=== PATIENT | male | born 1935 | race Caucasian/White ===

== ENCOUNTER 2024-08-10 22:47 | Inpatient (IN) | payer MEDICARE, OTHER, SELFPAY ==
--- OUTSIDE RECORDS SUMMARY | 2024-08-10 23:01 | XMS_ITS | Continuity of Care Document ---
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 Name Role Phone JAMISON ROSE II Primary Care Physician Encounter [facility] [id number] Date(s): 07/23/24 - 07/25/24 [facility] [address] [place] [phone] Encounter Diagnosis Stage 1 acute kidney injury(Discharge Diagnosis) - 07/23/24 Generalized weakness(Discharge Diagnosis) - 07/23/24 Discharge Disposition: D/C - Home Attending Physician: BEAR MORAN MD Admitting Physician: BEAR MORAN MD Allergies, Adverse Reactions, Alerts No Known Medication Allergies Assessment and Plan Extracted from: Title:Admission H & P Author:TISH TOMLIN MD Date:07/24/24 Weakness/deconditioning -Multifactorial:??Dehydration,??CYNDEE, anemia,??hyponatremia, malnutrition -Patient received a total of 1.5 L IV fluid, due to underlying heart failure we will proceed gently??with??NS 50 cc/h and reassess for??fluid overload -TSH ordered -Nutritional optimization -PT eval ?? CYNDEE -Creatinine 2.0, baseline 1.2 -Likely secondary to dehydration -IV fluids as above -Avoid nephrotoxic medications, trend BUN/creatinine ?? Hypoosmolar hyponatremia -Sodium 133 -Patient on NS, -BMP daily ?? Anemia -Hb 10.7,??JACINDA vs ACD -Iron panel/ferritin ordered ?? Bradycardia -EKG showing sinus bradycardia with??first-degree AV block -Will hold beta-blockers for now -Continue telemetry ? Other medical problems HFrEF, not in decompensation:??Last TTE done 02/2024??showed EF 35 to 40%??hold all diuretics for now due to??concerns of dehydration,??resume GDMT, will hold metoprolol Paroxysmal A-fib:??Resume Eliquis,??resume rest of her meds when med rec done, will hold metoprolol Dyslipidemia:??Resume statin when med rec done Essential hypertension:??Patient blood pressure??115/59,??controlled.?? Resume home medications when med rec done COPD, not in exacerbation: DuoNeb as needed ?? General Measures CODE STATUS: Full VTE prophylaxis: Patient on Eliquis GI prophylaxis: None needed FEN:??Regular diet Disposition: Medical floor telemetry ? Addendum by BEAR MORAN MD on July 24, 2024 09:13:46 EXECUTIVE ADMIN I was personally present throughout this encounter.?? I personally interviewed the patient regarding history and review of systems.?? I personally performed a physical exam on the patient.?? I contributed to the medical decision making of the encounter by reviewing/formulating the assessment and the plan for treatment and expected outcome.?? I have reviewed and agree with the Resident documentation and recommend no changes. Future Appointments Appointment Date:07/28/2024 11:45:00 AM Scheduled Provider: Location:[facility] Appointment Type:Surgery Appointment Date:08/15/2024 09:00:00 AM Scheduled Provider: Location:[facility] CT Appointment Type:CT Chest Diagnostic WO Diagnostic Tests Pending * Ferritin CQ 07/24/24 Future Scheduled Tests Radiology* CT Chest Diagnostic WO 08/15/24 Functional Status 07/24/24 ADLs Minimal assistance Medications ALPRAZolam 1 mg oral tablet = 1 tab(s), Oral, Daily at Bedtime, 0 Refill(s) Start Date: 02/25/24 Status: Ordered amiodarone 200 mg oral tablet = 1 tab(s), Oral, BID, 0 Refill(s) Start Date: 05/21/24 Status: Ordered apixaban 2.5 mg oral tablet = 1 tab(s), Oral, BID, # 60 tab(s), 2 Refill(s), Pharmacy: [facility], 165, cm, 07/24/24 0:40:00 EXECUTIVE ADMIN, Patient Height, 47, kg, 07/25/24 6:31:00 EXECUTIVE ADMIN, Patient Weight (kg) Start Date: 07/25/24 Stop Date: 10/23/24 Status: Ordered Entresto 24 mg-26 mg oral tablet 1 tab(s), Oral, BID, 0 Refill(s) Start Date: 07/21/24 Status: Ordered ferrous sulfate 325 mg (65 mg elemental iron) oral delayed release tablet = 1 tab(s), Oral, Q MWF, # 90 tab(s), 0 Refill(s) Start Date: 05/21/24 Status: Ordered Flonase 50 mcg/inh nasal spray 1 spray(s), Nasal, Daily Start Date: 07/24/24 Status: Ordered magnesium oxide 400 mg oral tablet = 1 tab(s), Oral, Daily, X 30 day(s), # 30 tab(s), 0 Refill(s), Pharmacy: [facility], 165, cm, 07/24/24 0:40:00 EXECUTIVE ADMIN, Patient Height, 47, kg, 07/25/24 6:31:00 EXECUTIVE ADMIN, Patient Weight (kg) Start Date: 07/25/24 Stop Date: 08/24/24 Status: Ordered metoprolol succinate 25 mg oral capsule, extended release = 1 cap(s), Oral, Daily, # 30 cap(s), 2 Refill(s), Pharmacy: [facility], 165, cm, 07/24/24 0:40:00 EXECUTIVE ADMIN, Patient Height, 47, kg, 07/25/24 6:31:00 EXECUTIVE ADMIN, Patient Weight (kg) Start Date: 07/25/24 Stop Date: 10/23/24 Status: Ordered montelukast 10 mg oral tablet = 1 tab(s), Oral, QPM, # 30 tab(s), 0 Refill(s) Start Date: 02/25/24 Status: Ordered pantoprazole 40 mg oral delayed release tablet = 1 tab(s), Oral, Daily, # 30 tab(s), 0 Refill(s) Start Date: 07/21/24 Status: Ordered Ventolin HFA 90 mcg/inh inhalation aerosol = 2 puff(s), Inhale, [id number], PRN for wheezing, # 8 gm, 0 Refill(s) Start Date: 02/25/24 Status: Ordered Mental Status 07/25/24 Orientation Assessment Identifies self 07/24/24 Affect/Behavior Appropriate, Calm, Cooperative, Motivated 07/24/24 Hallucinations Present None 07/23/24 Level of Consciousness NIH Stroke Scale Alert, keenly responsive Problem List Condition Confirmation Course Effective Dates Status Health St atus Informant At risk for fluid volume imbalance 1 Confirmed Active Fluid volume excess 2 Confirmed Active 1Problem added automatically by system based on initiation of appropriate Plan of Care 2Problem added automatically by system based on initiation of Heart Failure Plan of Care. Procedures Procedure Date Related Diagnosis Body Site Status Epidural Steroid Injection (Back) 1 04/01/24 Completed 1auto-populated from documented surgical case Results Laboratory List Name Date .Differential Automated 07/25/24 Basic Metabolic Profile w/Total Calcium 07/25/24 Complete Blood Count w/Diff Auto 4 Magnesium Serum 07/25/24 Comprehensive Metabolic Profile (CMP) .Differential Automated 07/24/24 BNP 07/24/24 Complete Blood Count w/Diff Auto (CBC w/ Diff Auto) 07/24/24 Iron Binding Capacity Panel DM 07/24/24 TSH 07/24/24 Urinalysis w/Reflex Micro/Reflex Culture 07/23/24 .Differential Automated 07/23/24 C Reactive Protein (CRP) 07/23/24 COVID-19 Influenza A and B INOCENCIO MARCO A 07/06 Complete Blood Count w/Diff Auto (CBC w/ Diff Auto) 07/23/24 Comprehensive Metabolic Profile (CMP) Magnesium Serum 07/23/24 Most recent to oldest [Reference Range]: 1 2 3 Dipstick Type? Auto (07/23/24 9:47 PM) Reflex Urine Culture? No (07/23/24 9:47 PM) Reflex Microscopic Type? Not Reqd (07/23/24 9:47 PM) eGFR [>=90 mL/min/1.73m??] 53 mL/min/1.7 3m?? 1 *LOW* (07/25/24 5:08 AM) 45 mL/min/1.73m?? 2 *LOW* (07/24/24 10:54 AM) 32 mL/min/1.73m?? 3 *LOW* (07/23/24 8:10 PM) nRBC% Auto 0 % *NA* (07/25/24 5:08 AM) 0 % *NA* (07/24/24 3:44 AM) 0 % *NA* (07/23/24 8:10 PM) nRBC# Auto 0 /100 WBC *NA* (07/25/24 5:08 AM) 0 /100 WBC *NA* (07/24/24 3:44 AM) 0 /100 WBC *NA* (07/23/24 8:10 PM) RBC [4.45-5.99] 4.21 *LOW* (07/25/24 5:08 AM) 3.72 *LOW* (07/24/24 3:44 AM) 4.00 *LOW* (07/23/24 8:10 PM) BUN [8-17 mg/dL] 14 mg/dL (07/25/24 5:08 AM) 19 mg/dL *HI* (07/24/24 10:54 AM) 29 mg/dL *HI* (07/23/24 8:10 PM) Albumin [3.6-4.9 g/dL] 2.3 g/dL *LOW* (07/24/24 10:54 AM) 2.3 g/dL *LOW* (07/23/24 8:10 PM) Alkaline Phosphatase [51-135 U/L] 77 U/L (07/24/24 10:54 AM) 77 U/L (07/23/24 8:10 PM) ALT [31-64 U/L] 111 U/L *HI* (07/24/24 10:54 AM) 109 U/L *HI* (07/23/24 8:10 PM) Anion Gap [3.1-10.9 mmol/L] 5.0 mmol/L (07/25/24 5:08 AM) 5.0 mmol/L (07/24/24 10:54 AM) 6.0 mmol/L (07/23/24 8:10 PM) AST [16-36 U/L] 80 U/L *HI* (07/24/24 10:54 AM) 79 U/L *HI* (07/23/24 8:10 PM) Basophils# Auto [1.0-1.0] 0.0 *LOW* (07/25/24 5:08 AM) 0.1 *LOW* (07/24/24 3:44 AM) 0.1 *LOW* (07/23/24 8:10 PM) Basophils% Auto [1.0-4.0 %] 0.6 % *LOW* (07/25/24 5:08 AM) 0.7 % *LOW* (07/24/24 3:44 AM) 0.7 % *LOW* (07/23/24 8:10 PM) Bili Total [0.1-0.9 mg/dL] 0.4 mg/dL (07/24/24 10:54 AM) 0.4 mg/dL (07/23/24 8:10 PM) BUN/Crea Ratio [6.01-19.99] 10.77 (07/25/24 5:08 AM) 12.67 (07/24/24 10:54 AM) 14.50 (07/23/24 8:10 PM) Calcium [8.6-10.0 mg/dL] 8.7 mg/dL (07/25/24 5:08 AM) 9.0 mg/dL (07/24/24 10:54 AM) 9.1 mg/dL (07/23/24 8:10 PM) Creatinine [0.6-1.3 mg/dL] 1.3 mg/dL (07/25/24 5:08 AM) 1.5 mg/dL *HI* (07/24/24 10:54 AM) 2.0 mg/dL *HI* (07/23/24 8:10 PM) Eos# Auto [2.0-2.0] 0.2 *LOW* (07/25/24 5:08 AM) 0.3 *LOW* (07/24/24 3:44 AM) 0.2 *LOW* (07/23/24 8:10 PM) Eosinophils% Auto [1.0-2.0 %] 2.8 % *HI* (07/25/24 5:08 AM) 4.9 % *HI* (07/24/24 3:44 AM) 2.9 % *HI* (07/23/24 8:10 PM) Globulin 5 *NA* (07/24/24 10:54 AM) 5 *NA* (07/23/24 8:10 PM) HCT [40.1-53.9 %] 37.1 % *LOW* (07/25/24 5:08 AM) 30.9 % *LOW* (07/24/24 3:44 AM) 33.3 % *LOW* (07/23/24 8:10 PM) Hgb [13.4-17.6 g/dL] 11.3 g/dL *LOW* (07/25/24 5:08 AM) 10.1 g/dL *LOW* (07/24/24 3:44 AM) 10.9 g/dL *LOW* (07/23/24 8:10 PM) Potassium [3.6-5.2 mEq/L] 4.6 mEq/L (07/25/24 5:08 AM) 4.9 mEq/L (07/24/24 10:54 AM) 4.9 mEq/L (07/23/24 8:10 PM) Lymphocytes# Auto [2.0-4.0] 0.9 *LOW* (07/25/24 5:08 AM) 1.0 *LOW* (07/24/24 3:44 AM) 0.9 *LOW* (07/23/24 8:10 PM) Lymphocytes% Auto [22.0-50.0 %] 12.8 % *LOW* (07/25/24 5:08 AM) 13.7 % *LOW* (07/24/24 3:44 AM) 12.6 % *LOW* (07/23/24 8:10 PM) MCH [27.1-32.9 pg] 26.8 pg *LOW* (07/25/24 5:08 AM) 27.1 pg (07/24/24 3:44 AM) 27.2 pg (07/23/24 8:10 PM) MCHC [32.1-35.9] 30.4 *LOW* (07/25/24 5:08 AM) 32.7 (07/24/24 3:44 AM) 32.7 (07/23/24 8:10 PM) MCV [80.1-96.9 fL] 88.0 fL (07/25/24 5:08 AM) 82.9 fL (07/24/24 3:44 AM) 83.2 fL (07/23/24 8:10 PM) Monocytes# Auto [1.0-1.0] 0.9 *LOW* (07/25/24 5:08 AM) 0.9 *LOW* (07/24/24 3:44 AM) 1.0 (07/23/24 8:10 PM) Monocytes% Auto [3.0-8.0 %] 12.8 % *HI* (07/25/24 5:08 AM) 12.7 % *HI* (07/24/24 3:44 AM) 12.9 % *HI* (07/23/24 8:10 PM) Neutrophils# Auto [3.0-7.0] 4.9 (07/25/24 5:08 AM) 4.8 (07/24/24 3:44 AM) 5.2 (07/23/24 8:10 PM) Neutrophils% Auto [38.0-69.0 %] 71.0 % *HI* (07/25/24 5:08 AM) 68.0 % (07/24/24 3:44 AM) 70.9 % *HI* (07/23/24 8:10 PM) Plt Cnt [151-449 x10^3/mcL] 307 x10^3/mc L (07/25/24 5:08 AM) 337 x10^3/mcL (07/24/24 3:44 AM) 349 x10^3/mcL (07/23/24 8:10 PM) Prot Total [6.5-8.2 g/dL] 7.4 g/dL (07/24/24 10:54 AM) 7.3 g/dL (07/23/24 8:10 PM) RDW [11.6-14.4 %] 17.6 % *HI* (07/25/24 5:08 AM) 16.9 % *HI* (07/24/24 3:44 AM) 16.7 % *HI* (07/23/24 8:10 PM) WBC [4.6-10.9 K/uL] 6.9 K/uL (07/25/24 5:08 AM) 7.1 K/uL (07/24/24 3:44 AM) 7.4 K/uL (07/23/24 8:10 PM) Sodium [136-149 mmol/L] 133 mmol/L *LOW* (07/25/24 5:08 AM) 135 mmol/L *LOW* (07/24/24 10:54 AM) 133 mmol/L *LOW* (07/23/24 8:10 PM) Albumin/Globulin Ratio [1.01-2.49] 0.45 *LOW* (07/24/24 10:54 AM) 0.46 *LOW* (07/23/24 8:10 PM) Ca Corrected [8.6-10.0 mg/dL] 10.4 mg/dL *HI* (07/24/24 10:54 AM) 10.5 mg/dL *HI* (07/23/24 8:10 PM) Glucose [71-109 mg/dL] 86 mg/dL (07/25/24 5:08 AM) 91 mg/dL (07/24/24 10:54 AM) 101 mg/dL (07/23/24 8:10 PM) MPV [7.5-10.3 fL] 8.1 fL (07/25/24 5:08 AM) 8.3 fL (07/24/24 3:44 AM) 8.3 fL (07/23/24 8:10 PM) Chloride [96-109 mmol/L] 102 mmol/L (07/25/24 5:08 AM) 102 mmol/L (07/24/24 10:54 AM) 101 mmol/L (07/23/24 8:10 PM) Ur Appearance Clear (07/23/24 9:47 PM) Ur Bili [Negative] Negative (07/23/24 9:47 PM) Ur Blood Negative (07/23/24 9:47 PM) Ur Collection Source Random Urine (07/23/24 9:47 PM) Ur Color Yellow (07/23/24 9:47 PM) Ur Glucose [Normal] Normal (07/23/24 9:47 PM) Ur Ketone [Negative] Negative (07/23/24 9:47 PM) Ur Leukocyte Esterase [Negative] Negative (07/23/24 9:47 PM) Ur Nitrite [Negative] Negative (07/23/24 9:47 PM) Ur pH [5.0-9.0 pH Units] 5.5 pH Units (07/23/24 9:47 PM) Ur Specific [place] 1.043 *ABN* (07/23/24 9:47 PM) Ur Urobilinogen [Normal] Normal (07/23/24 9:47 PM) B Type Natriuretic Peptide [1-99 pg/mL] 119 pg/mL *HI* (07/24/24 3:44 AM) Iron [36-149 ug/dL] 14 ug/dL 4 *LOW* (07/24/24 3:44 AM) Magnesium [1.90-2.30 mg/dL] 1.40 mg/dL *LOW* (07/25/24 5:08 AM) 2.00 mg/dL (07/23/24 8:10 PM) TSH [0.35-3.99 uIU/mL] 1.84 uIU/mL (07/24/24 3:44 AM) Influenza A [Negative] Negative (07/23/24 8:10 PM) Influenza B [Negative] Negative (07/23/24 8:10 PM) C Reactive Protein [0.0-0.9 mg/dL] 8.2 mg/dL *HI* (07/23/24 8:10 PM) Ur Protein [Negative] Trace (07/23/24 9:47 PM) Carbon Dioxide [22-33 mmol/L] 26 mmol/L (07/25/24 5:08 AM) 28 mmol/L (07/24/24 10:54 AM) 26 mmol/L (07/23/24 8:10 PM) COVID-19SARSAgFIA [negative] negative *NA* (07/23/24 8:10 PM) Iron Sat DM [20.0-50.0 %] 13.9 % *LOW* (07/24/24 3:44 AM) IBC Total DM [251-449 ug/dL] 101 ug/dL *LOW* (07/24/24 3:44 AM) Osmol Calc [281-300 mOsm/kg] 266 mOsm/kg *LOW* (07/25/24 5:08 AM) 272 mOsm/kg *LOW* (07/24/24 10:54 AM) 272 mOsm/kg *LOW* (07/23/24 8:10 PM) 1Interpretive Data: CKD is defined by the presence of glomerular filtration rate (GFR) <60 mL for>3 months and/or evidence of kidney damage (eg, structural abnormalities, histologic abnormalities, albuminuria, urinary sediment abnormalities, renal tubular disorders, and/or history of kidney tr ansplantation) for >3months. This table provides interpretation of specific eGFR values. Creatinine measurements, and therefore eGFR calculations, are affected by very high or very low muscle mass, muscle injury, a diet very high in meat, hepatic cirrhosis, certain drugs, etc. Stages of CKD: Stage Description GFR mL/min 1 Kidney damage with normal or increased GFR 90 2 Kidney damage with mild decrease in GFR 60 to 89 3 Moderate decrease in GFR 30 to 59 4 Severe decrease in GFR 15 to 29 5 Kidney failure <15 (or dialysis) Note: GFR Normal range >60, equation not validated for ages <18 and >70 and women. 2Interpretive Data: CKD is defined by the presence of glomerular filtration rate (GFR) <60 mL for>3 months and/or evidence of kidney damage (eg, structural abnormalities, histologic abnormalities, albuminuria, urinary sediment abnormalities, renal tubular disorders, and/or history of kidney tr ansplantation) for >3months. This table provides interpretation of specific eGFR values. Creatinine measurements, and therefore eGFR calculations, are affected by very high or very low muscle mass, muscle injury, a diet very high in meat, hepatic cirrhosis, certain drugs, etc. Stages of CKD: Stage Description GFR mL/min 1 Kidney damage with normal or increased GFR 90 2 Kidney damage with mild decrease in GFR 60 to 89 3 Moderate decrease in GFR 30 to 59 4 Severe decrease in GFR 15 to 29 5 Kidney failure <15 (or dialysis) Note: GFR Normal range >60, equation not validated for ages <18 and >70 and women. 3Interpretive Data: CKD is defined by the presence of glomerular filtration rate (GFR) <60 mL for>3 months and/or evidence of kidney damage (eg, structural abnormalities, histologic abnormalities, albuminuria, urinary sediment abnormalities, renal tubular disorders, and/or history of kidney tr ansplantation) for >3months. This table provides interpretation of specific eGFR values. Creatinine measurements, and therefore eGFR calculations, are affected by very high or very low muscle mass, muscle injury, a diet very high in meat, hepatic cirrhosis, certain drugs, etc. Stages of CKD: Stage Description GFR mL/min 1 Kidney damage with normal or increased GFR 90 2 Kidney damage with mild decrease in GFR 60 to 89 3 Moderate decrease in GFR 30 to 59 4 Severe decrease in GFR 15 to 29 5 Kidney failure <15 (or dialysis) Note: GFR Normal range >60, equation not validated for ages <18 and >70 and women. 4Interpretive Data: Iron values may be falsely elevated in serum samples from patients treated with anticoagulants (e.g.,hemodialysis, heparin patients) Radiology Reports * Exam Date Time Procedure Performing Provider Status 07/23/24 9:[address] Abdomen Pelvis W Rayo, Lawrence wsheana L Ct Techno I; Auth (Verified) Notes: (CT Abdomen Pelvis W) Reason For Exam: Abdominal pain, generalized REPORT EXAM: CT ABDOMEN AND PELVIS WITH CONTRAST HISTORY: Abdominal and pelvic pain. TECHNIQUE: CT acquisition of the abdomen and pelvis from the lower thorax through the pelvis following IV contrast administration. 2-D coronal and sagittal reformatted images were obtained from the axial source images. IV Contrast: administered. Oral Contrast: None. CT Dose Reduction Techniques Performed: Yes. COMPARISON: 01/31/2023. FINDINGS: Lower Thorax: See same day report CT chest Liver: No mass. Normal morphology. Punctate calcifications. Biliary: The gallbladder is surgically absent with clips noted in the gallbladder bed. The bile ducts are normal. Pancreas: No mass or evidence of pancreatitis. No duct dilation. Spleen: No mass. No splenomegaly. Punctate calcifications. Adrenals: No mass. Kidneys/Ureters: Benign 4 cm left renal cyst. No solid renal mass. No calculus or hydronephrosis. GI Tract: No bowel dilation. No bowel wall thickening. Peritoneal Cavity: No ascites. No free air. Retroperitoneum: No fluid collection. Lymph Nodes: No lymphadenopathy. Vasculature: There are aortic atherosclerotic calcifications. No aortic or iliac aneurysm. Celiac, superior mesenteric, and inferior mesenteric arteries are grossly patent. Limited assessment of the portal and hepatic veins and IVC is unremarkable within limitations of the phase of IV contrast. Pelvis: No mass. Bladder is normal. Bones/Soft Tissues: No fracture or lytic lesion. Degenerative changes of the spine. Visualized abdominal wall soft tissues are unremarkable. IMPRESSION: 1. 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 2. Benign left renal cyst. 3. Atherosclerosis. 4. Degenerative changes of the spine. 5.. Otherwise unremarkable contrast enhanced CT scan of the abdomen and pelvis. All CT scans are performed using dose optimization techniques as appropriate to the performed exam and include at least one of the following: Automated exposure control, adjustment of the mA and/or kV accordingto size, and the use of iterative reconstruction technique. Final Signed by: GRECIA VANN MD Signed (Electronic Signature): 07/23/2024 10:21 pm EXECUTIVE ADMIN * Exam Date Time Procedure Performing Provider Status 07/23/24 9:[address] Chest Diagnostic W Perri, Hernandez willard L Ct Techno I; Auth (Verified) Notes: (CT Chest Diagnostic W) Reason For Exam: Chest pain REPORT EXAM: CHEST CT WITH INTRAVENOUS CONTRAST HISTORY: Chest pain. TECHNIQUE: CT acquisition of the chest from the thoracic inlet to the upper abdomen following IV contrast administration. 2-D coronal and sagittal reformatted images were obtained from the axial source images. IV Contrast: administered. CT Dose Reduction Techniques Performed: Yes. COMPARISON: 11/15/2023. FINDINGS: Lines, Tubes, Devices: None. Lung Parenchyma and Airways: Central airways are patent without endobronchial lesion. No focal consolidation or interstitial disease. No suspicious pulmonary nodule. Irregular density in the left upper lobe measuring 1.5 cm consistent with scarring and unchanged. Multiple regions of scarring and bronchiectasis in the right upper lobe, and throughout the left lung. Benign calcified granulomas in the right mid lung zone. Pleural Space: No pleural effusion or thickening. No pneumothorax. Thoracic Inlet, Mediastinum, and Catherine: Thyroid gland is normal. No lymphadenopathy. Benign calcified right hilar lymph nodes. Heart, Vessels, and Pericardium: The main pulmonary artery is normal caliber. There is no central pulmonary embolism. The thoracic aorta is not dilated. The heart chambers are not enlarged. There is no pericardial effusion or thickening. Calcifications in the aortic valve. Bones and Soft Tissues: There is no fracture, lytic lesion, or blastic lesion. Chest wall soft tissues are unremarkable. Upper Abdomen: Punctate calcifications in the liver and spleen. Normal visualized portions of the adrenals. Surgical clips from previous cholecystectomy. IMPRESSION: 1. Extensive chronic pulmonary changes bilaterally as seen previously. 2. 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 3. Calcifications in the aortic valve. 4. Previous cholecystectomy. 5. Otherwise unremarkable contrast enhanced CT scan of the chest. All CT scans are performed using dose optimization techniques as appropriate to the performed exam and include at least one of the following: Automated exposure control, adjustment of the mA and/or kV accordingto size, and the use of iterative reconstruction technique. Final Signed by: GRECIA VANN MD Signed (Electronic Signature): 07/23/2024 10:18 pm EXECUTIVE ADMIN Vital Signs Most recent to oldest [Reference Range]: 1 2 Patient Height 165 cm (07/24/24 12:40 AM) 165 cm (07/24/24 12:40 AM) Patient Weight (kg) 47 kg (07/25/24 4:00 AM) [place] Body Weight Calculated 61.409 kg (07/24/24 12:40 AM) BSA Measured 1.49 m2 (07/24/24 12:40 AM) Body Mass Index Measured 17.81 kg/m2 (07/24/24 12:40 AM) 17.81 kg/m2 (07/24/24 12:40 AM) Blood Pressure [95-120/59-81 mmHg] 118/6 3mmHg (07/25/24 1:35 PM) Mean Arterial Pressure, Cuff 81 mmHg (07/25/24 1:35 PM) Temperature Oral [96.6-99.6 DegF] 97.7 D egF (07/25/24 9:19 AM) Oxygen Flow Rate 0 L/min (07/25/24 11:13 AM) FIO2 21 % (07/25/24 11:13 AM) SpO2 97 % (07/25/24 11:13 AM) Peripheral Pulse Rate [60-100 bpm] 69 bp m (07/25/24 9:19 AM) Heart Rate Monitored [60-100 bpm] 55 bpm *LOW* (07/23/24 10:45 PM) Respiratory Rate [10-21 br/min] 17 br/mi n (07/25/24 9:19 AM) Advance Directives No (07/24/24 12:40 AM) Pt requests addtl advance directive info No (07/24/24 12:40 AM) Social History Social History Type Response Smoking Status Tobacco use status 3 0 days prior to admission No tobacco use of any form;Never (less than 100 in lifetime) entered on: 07/21/24 Sex Male Hospital Discharge Instructions Patient Education 07/25/2024 13:39:04 Acute Kidney Injury, Adult Acute Kidney Injury, Adult Acute kidney injury is a sudden decrease in the ability of the kidneys to do what they are supposedto do. The kidneys are a pair of organs that: ??? Make urine. ??? Make hormones. ??? Keep the right amount of fluids and chemicals in the body. This condition ranges from mild to severe. Over time, it may turn into long-term (chronic) kidney disease. Finding and treating the injury early may keep it from turning into chronic kidney disease. What are the causes? Common causes of this condition include: ??? A problem with blood flow to the kidneys. This may be caused by: ??? Low blood pressure, shock, or severe dehydration. ??? Severe blood loss. ??? Heart and blood vessel disease. ??? Severe smiht. ??? Liver disease. ??? Direct damage to the kidneys. This may be caused by: ??? Certain medicines or toxins. ??? Kidney disease. ??? Contrast dye used in imaging tests. ??? An infection of the kidney or bloodstream. ??? Problems from surgery. ??? Trauma to the kidney area. ??? Organ failure. This includes heart or liver failure. ??? A sudden block in urine flow. This may be caused by: ??? Cancer. ??? Kidney stones. ??? An enlarged prostate. What increases the risk? You may be more likely to develop this condition if: ??? You are older than 65 years of age. ??? You are female. ??? You are in the hospital. You may be even more at risk if you are very sick. ??? You have certain conditions. These may include: ??? Chronic kidney or liver disease. ??? Diabetes. ??? Heart disease and heart failure. ??? Lung disease. What are the signs or symptoms? This condition may not cause symptoms until it becomes severe. If it does, symptoms may include: ??? Feeling very tired or having trouble staying awake. ??? Nausea or vomiting. ??? Swelling (edema) of the face, legs, ankles, or feet. ??? Pain in your abdomen, back, or along the side of your back (flank). ??? Urine changes. You may: ??? Make little or no urine. ??? Pass urine with a weak flow. ??? Muscle twitches and cramps. These are most often in the legs. ??? Confusion or trouble focusing. ??? Not feeling the urge to eat. ??? Fever. How is this diagnosed? This condition may be diagnosed based on your symptoms and your medical history. You may have a physical exam done. You may also have tests, such as: ??? Blood tests. ??? Urine tests. ??? Imaging tests. ??? A kidney biopsy. This is when a sample of kidney tissue is removed and looked at under a microscope. How is this treated? Treatment depends on the cause and how severe the condition is. In mild cases, treatment may not beneeded. The kidneys may heal on their own. In severe cases, treatment may include: ??? Treating the cause of the kidney injury. This may mean that you have to change your medicines or the doses you take. ??? Getting fluids through an IV tube. ??? Having a flexible tube (catheter) put in. This tube will drain urine and prevent blockages. ??? Trying to keep problems from starting. This may mean not using certain medicines or not having tests done that could cause more injury. In some cases, you may also need: ??? Dialysis or continuous renal replacement therapy (CRRT). This treatment uses a machine to do the job of the kidneys. ??? Surgery. This may be done to repair a damaged kidney. It could also be done to remove a blockage in the urinary tract. Follow these instructions at home: Medicines ??? Take [id number] and prescription medicines only as told by your health care provider. ??? Do not take new medicines unless approved by your health care provider. Many medicines can makekidney damage worse. ??? Do not take vitamin or mineral supplements unless approved by your health care provider. Some of these can make kidney damage worse. Lifestyle ??? Make changes to your diet as told by your health care provider. You may need to eat less protein. ??? Get to, and stay at, a healthy weight. If you need help, ask your health care provider. ??? Start or keep up an exercise plan. Exercise at least 30 minutes a day, 5 days a week. ??? Do not use any products that contain nicotine or tobacco. These products include cigarettes, chewing tobacco, and vaping devices, such as e-cigarettes. If you need help quitting, ask your health care provider. General instructions ??? Keep track of your blood pressure. Tell your health care provider if you notice any changes. ??? Keep your vaccines up to date. Ask your health care provider which vaccines you need. ??? Keep all follow-up visits. Your health care provider will need to monitor your kidneys. Where to find support ??? [place] [employer]: aakp.org ??? [place] [employer]: akfinc.org Where to find more information ??? National Kidney Foundation: kidney.org ??? Medical Education [place]: ??? LifeOptions: lifeoptions.org ??? Kidney School: kidneyschool.org Contact a health care provider if: ??? Your symptoms get worse. ??? You have new symptoms, such as: ??? Headaches. ??? Skin that is darker or machine tool dresser than normal. ??? Easy bruising. ??? Feeling itchy. ??? Hiccups. ??? Lack of menstrual periods. ??? You have a fever. Get help right away if: ??? You have signs of severe kidney disease, such as: ??? Chest pain. ??? Shortness of breath. ??? Seizures. ??? You have pain or bleeding when you pass urine. ??? You make little or no urine. These symptoms may be an emergency. Get help right away. Call 911. ??? Do not wait to see if the symptoms will go away. ??? Do not drive yourself to the hospital. This information is not intended to replace advice given to you by your health care provider. Make sure you discuss any questions you have with your health care provider. Document Revised: 02/16/2023 Document Reviewed: 02/16/2023 [employer] Patient Education ?? 2022 [employer]. Follow Up Care 07/23/2024 19:22:30 With:BEAR MORAN MD Address: [address] [id number]- When:1 week Comments:Follow Up History and physical note * TISH TOMLIN MD: MODIFY TISH TOMLIN MD: MODIFY, PERFORM TISH TOMLIN MD: PERFORM Event Display: History and Physical Authored Date: Chief Complaint AMS. ??Progressivelty weaker and more confused over last week or so. ??Poor PO intake. ??Neck and shoulder pain increased over baseline. ??Generalized joint pain. ??Loss of coordination with LLE History of Present Illness 89-year-old male with a past medical history of??COPD, hypertension, dyslipidemia, A-fib, heart failure.?? Daughter at bedside reports patient has become progressively??weak??over the last 1.5-weeks.??At baseline??patient is said to be very functional.?? He was taken??to an urgent care clinic and any family??where it is possible he has chronic??right lung scarring was diagnosed as??pneumonia andpatient was started on Augmentin and doxycycline??and discharged home.?? Due to lack of improvement, patient consulted??at [facility] urgent care??[place]??2 days later with lab work done showed??some elevation in LFTs??and patient was discharged home??and encouraged to complete his antibiotics.?Patient still did not improve,??he continued to loss of strength,??became??inactive??and needing help with ADLs. ??This prompted patient's family to bring him to the ER.?? Patient is anorexic??and measures.?? He denies vomiting, headaches, chest pain,??abdominal pain, dysuria,??change in bladder habits, change in bowel habits. Patient describes it as stinging in the ER, hemodynamics are stable,??CBC was significant for Hb 10.9,??ALT 109 normal, AST 79, ALP 77.?? CRP 8.2. ??Patient screened negative for COVID and flu.?? CMPshowed??mild??hyponatremia,??BUN 29, creatinine 2.0.?? Chest CT??did not demonstrate??any??new/acute??changes aside from??chronic left lung scarring. ??Patient family reports likely secondary to recurrent pneumonia versus heart as a child.?? And patient has had part of his left lung taken out.?? Abdominal CT??was noncontributory. He was given a bolus of 1 L??LR??in the ER??and??hospitalist team was asked to admit patient for further assessment and evaluation??of failure to thrive. Review of Systems Review of system was done and was noncontributory except for pertinent positives and negatives mentioned in the history above. Physical Exam Vitals & Measurements HR:??58??(Peripheral)?? RR:??18?? BP:??115/59?? BP:??93/46(BMDI)?? BP:??115/59(Sitting)?? SpO2:??95%?? HT:??165??cm?? HT:??165??cm?? WT:??48.5??kg??(Dosing)?? WT:??48.5??kg??(Dosing)?? BMI:??17.81?? BMI:??17.81?? General: well appearing, no acute distress HEENT: atraumatic, PERRLA,??dry mucosa, Neck: Trachea midline, no carotid bruit, no masses, no JVD Respiratory: normal chest wall expansion, CTA B, no r/r/w, no rubs Cardiovascular: RRR, no m/r/g, Normal S1 and S2 Abdomen: Soft, NT, ND,??no HSM,??BS+,??no guarding/rebound Genitourinary: deferred Rectal: deferred Musculoskeletal: normal ROM in upper and lower extremities, no edema Integumentary: warm, dry, and pink, with no rash, purpura, or petechia Heme/Lymph: no lymphadenopathy, no bruises Neurological: DTR not evaluated,??CN II to XII??unremarkable,??no sensory deficit, no motor deficit,??mentation conserved, coordination normal Psychiatric: cooperative with normal mood, affect, and cognition Assessment/Plan Weakness/deconditioning -Multifactorial:??Dehydration,??CYNDEE, anemia,??hyponatremia, malnutrition -Patient received a total of 1.5 L IV fluid, due to underlying heart failure we will proceed gently??with??NS 50 cc/h and reassess for??fluid overload -TSH ordered -Nutritional optimization -PT eval ?? CYNDEE -Creatinine 2.0, baseline 1.2 -Likely secondary to dehydration -IV fluids as above -Avoid nephrotoxic medications, trend BUN/creatinine ?? Hypoosmolar hyponatremia -Sodium 133 -Patient on NS, -BMP daily ?? Anemia -Hb 10.7,??JACINDA vs ACD -Iron panel/ferritin ordered ?? Bradycardia -EKG showing sinus bradycardia with??first-degree AV block -Will hold beta-blockers for now -Continue telemetry ? Other medical problems HFrEF, not in decompensation:??Last TTE done 02/2024??showed EF 35 to 40%??hold all diuretics for now due to??concerns of dehydration,??resume GDMT, will hold metoprolol Paroxysmal A-fib:??Resume Eliquis,??resume rest of her meds when med rec done, will hold metoprolol Dyslipidemia:??Resume statin when med rec done Essential hypertension:??Patient blood pressure??115/59,??controlled.?? Resume home medications when med rec done COPD, not in exacerbation: DuoNeb as needed ?? General Measures CODE STATUS: Full VTE prophylaxis: Patient on Eliquis GI prophylaxis: None needed FEN:??Regular diet Disposition: Medical floor telemetry Problem List/Past Medical History Ongoing At risk for fluid volume imbalance Fall risk Fluid volume excess Historical No qualifying data Procedure/Surgical History ???Epidural Steroid Injection (Back) (04/01/2024)???NJX DX/THER SBST INTRLMNR CRV/THRC W/IMG GDN (04/01/2024) Medications Inpatient Capvaxive PF, 0.5 mL, IM, One Time Unscheduled Eliquis, 2.5 mg= 1 tab(s), Oral, BID Mag-Ox 400 - electrolyte replacement, 400 mg= 1 tab(s), Oral, BID, PRN Mag-Ox 400 - electrolyte replacement, 800 mg= 2 tab(s), Oral, BID, PRN [place] 5 mg-325 mg oral tablet, 1 tab(s), Oral, q4H, PRN NS 1,000 mL, 1000 mL, IV potassium chloride - electrolyte replacement, 40 mEq= 2 tab(s), Oral, q4H, PRN potassium chloride - electrolyte replacement, 40 mEq= 2 tab(s), Oral, q4H, PRN Tylenol, 650 mg= 2 tab(s), Oral, q4H, PRN Zofran, 4 mg= 2 mL, IV Push, q8H, PRN Home ALPRAZolam 1 mg oral tablet, 1 mg= 1 tab(s), Oral, TID, PRN amiodarone 200 mg oral tablet, 200 mg= 1 tab(s), Oral, Daily apixaban 2.5 mg oral tablet, 2.5 mg= 1 tab(s), Oral, BID, 2 refills Breo Ellipta 100 mcg-25 mcg inhalation powder, 1 puff(s), Inhale, Daily Entresto 24 mg-26 mg oral tablet ferrous sulfate 325 mg (65 mg elemental iron) oral delayed release tablet, 325 mg= 1 tab(s), Oral, Q MWF metoprolol succinate 25 mg oral capsule, extended release, 25 mg= 1 cap(s), Oral, Daily, 2 refills montelukast 10 mg oral tablet, 10 mg= 1 tab(s), Oral, QPM omeprazole 40 mg oral delayed release capsule, 40 mg= 1 cap(s), Oral, Daily pantoprazole 40 mg oral delayed release tablet, 40 mg= 1 tab(s), Oral, Daily spironolactone 25 mg oral tablet, 25 mg= 1 tab(s), Oral, BID Ventolin HFA 90 mcg/inh inhalation aerosol, 2 puff(s), Inhale, c3F-wam, PRN Allergies No Known Medication Allergies Social History Alcohol Never Home/Environment/Abuse Living situation: Home/Independent. Injuries/Abuse/Neglect in household: No. Abuse Concerns: No Signs or Symptoms. Neglect Concerns: No Signs or Symptoms. Marijuana Recreational Use Never smoker Nutrition/Health Regular diet Diet:. Psychosocial No Hospital Clergy to Visit:. Substance Abuse Never Tobacco No tobacco use of any form, Never (less than 100 in lifetime) Lab Results Test Name Test Result Date/Time WBC 7.4 K/uL 07/23/2024 20:10 EXECUTIVE ADMIN RBC 4.00 (Low) 07/23/2024 20:10 EXECUTIVE ADMIN Hgb 10.9 g/dL (Low) 07/23/2024 20:10 EXECUTIVE ADMIN HCT 33.3 % (Low) 07/23/2024 20:10 EXECUTIVE ADMIN MCH 27.2 pg 07/23/2024 20:10 EXECUTIVE ADMIN MCHC 32.7 07/23/2024 20:10 EXECUTIVE ADMIN MCV 83.2 fL 07/23/2024 20:10 EXECUTIVE ADMIN Plt Cnt 349 x10^3/mcL 07/23/2024 20:10 EXECUTIVE ADMIN MPV 8.3 fL 07/23/2024 20:10 EXECUTIVE ADMIN RDW 16.7 % (High) 07/23/2024 20:10 EXECUTIVE ADMIN Neutrophils% Auto 70.9 % (High) 07/23/2024 20:10 EXECUTIVE ADMIN Lymphocytes% Auto 12.6 % (Low) 07/23/2024 20:10 EXECUTIVE ADMIN Monocytes% Auto 12.9 % (High) 07/23/2024 20:10 EXECUTIVE ADMIN Basophils% Auto 0.7 % (Low) 07/23/2024 20:10 EXECUTIVE ADMIN Eosinophils% Auto 2.9 % (High) 07/23/2024 20:10 EXECUTIVE ADMIN Neutrophils# Auto 5.2 07/23/2024 20:10 EXECUTIVE ADMIN Lymphocytes# Auto 0.9 (Low) 07/23/2024 20:10 EXECUTIVE ADMIN Monocytes# Auto 1.0 07/23/2024 20:10 EXECUTIVE ADMIN Basophils# Auto 0.1 (Low) 07/23/2024 20:10 EXECUTIVE ADMIN Eos# Auto 0.2 (Low) 07/23/2024 20:10 EXECUTIVE ADMIN nRBC% Auto 0 % 07/23/2024 20:10 EXECUTIVE ADMIN nRBC# Auto 0 /100 WBC 07/23/2024 20:10 EXECUTIVE ADMIN Ur Color Yellow Clinitek 07/23/2024 21:47 EXECUTIVE ADMIN Ur Appearance Clear 07/23/2024 21:47 EXECUTIVE ADMIN Ur Specific [place] 1.043 (Abnormal) 07/23/2024 21:47 EXECUTIVE ADMIN Ur pH 5.5 pH Units 07/23/2024 21:47 EXECUTIVE ADMIN Ur Protein Trace 07/23/2024 21:47 EXECUTIVE ADMIN Ur Glucose Normal Iris 07/23/2024 21:47 EXECUTIVE ADMIN Ur Ketone Negative... 07/23/2024 21:47 EXECUTIVE ADMIN Ur Bili Negative_Iris IQ200 07/23/2024 21:47 EXECUTIVE ADMIN Ur Blood Negative_Iris IQ200 07/23/2024 21:47 EXECUTIVE ADMIN Ur Nitrite Negative Clinitek 500 07/23/2024 21:47 EXECUTIVE ADMIN Ur Urobilinogen Normal Cllinitek 07/23/2024 21:47 EXECUTIVE ADMIN Ur Leukocyte Esterase Negative Clinitek 500 07/23/2024 21:47 EXECUTIVE ADMIN Ur Collection Source Random Urine 07/23/2024 21:47 EXECUTIVE ADMIN Dipstick Type? Auto 07/23/2024 21:47 EXECUTIVE ADMIN Reflex Microscopic Type? Not Reqd 07/23/2024 21:47 EXECUTIVE ADMIN Reflex Urine Culture? No 07/23/2024 21:47 EXECUTIVE ADMIN Sodium 133 mmol/L (Low) 07/23/2024 20:10 EXECUTIVE ADMIN Potassium 4.9 mEq/L 07/23/2024 20:10 EXECUTIVE ADMIN Chloride 101 mmol/L 07/23/2024 20:10 EXECUTIVE ADMIN Carbon Dioxide 26 mmol/L 07/23/2024 20:10 EXECUTIVE ADMIN BUN 29 mg/dL (High) 07/23/2024 20:10 EXECUTIVE ADMIN Creatinine 2.0 mg/dL (High) 07/23/2024 20:10 EXECUTIVE ADMIN eGFR 32 mL/min/1.73m?? (Low) 07/23/2024 20:10 EXECUTIVE ADMIN Comments : CKD is defined by the presence of glomerular filtration rate (GFR) <60 mL for >3 months and/or evidence of kidney damage (eg, structural abnormalities, histologic abnormalities, albuminuria, urinary sediment abnormalities, renal tubular disorders, and/or history of kidney transplantation) for>3months. This table provides interpretation of specific eGFR values. Creatinine measurements, and therefore eGFR calculations, are affected by very high or very low muscle mass, muscle injury, a diet very high in meat, hepatic cirrhosis, certain drugs, etc. ?? Stages of CKD: Stage Description GFR mL/min 1 Kidney damage with normal or increased GFR 90 2 Kidney damage with mild decrease in GFR 60 to 89 3 Moderate decrease in GFR 30 to 59 4 Severe decrease in GFR 15 to 29 5 Kidney failure <15 (or dialysis) ?? Note: GFR Normal range >60, equation not validated for ages <18 and >70 and women. Glucose 101 mg/dL 07/23/2024 20:10 EXECUTIVE ADMIN Calcium 9.1 mg/dL 07/23/2024 20:10 EXECUTIVE ADMIN Anion Gap 6.0 mmol/L 07/23/2024 20:10 EXECUTIVE ADMIN Osmol Calc 272 mOsm/kg (Low) 07/23/2024 20:10 EXECUTIVE ADMIN BUN/Crea Ratio 14.50 07/23/2024 20:10 EXECUTIVE ADMIN Albumin 2.3 g/dL (Low) 07/23/2024 20:10 EXECUTIVE ADMIN Alkaline Phosphatase 77 U/L 07/23/2024 20:10 EXECUTIVE ADMIN ALT 109 U/L (High) 07/23/2024 20:10 EXECUTIVE ADMIN AST 79 U/L (High) 07/23/2024 20:10 EXECUTIVE ADMIN Bili Total 0.4 mg/dL 07/23/2024 20:10 EXECUTIVE ADMIN Prot Total 7.3 g/dL 07/23/2024 20:10 EXECUTIVE ADMIN Globulin 5 07/23/2024 20:10 EXECUTIVE ADMIN Albumin/Globulin Ratio 0.46 (Low) 07/23/2024 20:10 EXECUTIVE ADMIN Magnesium 2.00 mg/dL 07/23/2024 20:10 EXECUTIVE ADMIN Ca Corrected 10.5 mg/dL (High) 07/23/2024 20:10 EXECUTIVE ADMIN C Reactive Protein 8.2 mg/dL (High) 07/23/2024 20:10 EXECUTIVE ADMIN Influenza A Negative..... 07/23/2024 20:10 EXECUTIVE ADMIN Influenza B Negative..... 07/23/2024 20:10 EXECUTIVE ADMIN COVID-19SARSAgFIA negative Marco A 07/23/2024 20:10 EXECUTIVE ADMIN Kit Lot Exp 02/20/2025 07/23/2024 20:10 EXECUTIVE ADMIN Kit Lot Number [id number] 07/23/2024 20:10 EXECUTIVE ADMIN QCI 1 Pass 07/23/2024 20:10 EXECUTIVE ADMIN QCI 2 Pass 07/23/2024 20:10 EXECUTIVE ADMIN Diagnostic Results EKG Report [Most Recent Results] ?? EKG Report * Preliminary * ?? 07/24/24 03:06:17 [facility] ?? 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 Diagnostic Radiology [Within the Last 24 Hours]?? No qualifying data available. ?? Computed Tomography [Within the Last 24 Hours] ?? CT Chest Diagnostic W ?? 07/23/24 22:10:36 IMPRESSION: 1. Extensive chronic pulmonary changes bilaterally as seen previously. 2. 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 3. Calcifications in the aortic valve. 4. Previous cholecystectomy. 5. Otherwise unremarkable contrast enhanced CT scan of the chest. ?? All CT scans are performed using dose optimization techniques as appropriate to the performed exam and include at least one of the following: Automated exposure control, adjustment of the mA and/or kV accordingto size, and the use of iterative reconstruction technique. ?? Signed By: GRECIA VANN MD ?? CT Abdomen Pelvis W ?? 07/23/24 22:15:02 IMPRESSION: 1. 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 2. Benign left renal cyst. 3. Atherosclerosis. 4. Degenerative changes of the spine. 5.. Otherwise unremarkable contrast enhanced CT scan of the abdomen and pelvis. ?? All CT scans are performed using dose optimization techniques as appropriate to the performed exam and include at least one of the following: Automated exposure control, adjustment of the mA and/or kV accordingto size, and the use of iterative reconstruction technique. ?? Signed By: GRECIA VANN MD ?? Ultrasound [Within the Last 24 Hours]?? No qualifying data available. Electronically Signed on 07/24/2024 05:19 EXECUTIVE ADMIN TISH TOMLIN MD Electronically Signed on 07/24/2024 07:57 EXECUTIVE ADMIN TISH TOMLIN MD Electronically Signed on 07/24/2024 09:13 EXECUTIVE ADMIN BEAR MORAN MD Modified by: TISH TOMLIN MD on 07/24/2024 07:57 EXECUTIVE ADMIN Modified by: BEAR MORAN MD on 07/24/2024 09:13 EXECUTIVE ADMIN * BEAR MORAN MD: PERFORM Event Display: History and Physical Authored Date: I was personally present throughout this encounter.?? I personally interviewed the patient regarding history and review of systems.?? I personally performed a physical exam on the patient.?? I contributed to the medical decision making of the encounter by reviewing/formulating the assessment and the plan for treatment and expected outcome.?? I have reviewed and agree with the Resident documentatio n and recommend no changes. Electronically Signed on 07/24/2024 09:13 EXECUTIVE ADMIN BEAR MORAN MD Modified by: BEAR MORAN MD on 07/24/2024 09:13 EXECUTIVE ADMIN Patient Care team information Care Team Personnel Name: JAMISON ROSE II, MD Position: Physician - View Only Member Role: Primary Care Physician Address: Address: [facility] [place] [address]- Care Team Related Persons Name: LACEY RODRÍGUEZ Name: SEBASTIAN WYATT Name: LIO WYATT
--- OUTSIDE RECORDS SUMMARY | 2024-08-10 23:01 | XMS_ITS | Data Portability ---
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 [email or web address] Not available 02/07/2024 00:11:49 03/17/2024 03/17/2024 88 yo male with hx of HTN, COPD, HLD, atrial fibrillation, here today for hospital follow up. [email or web address] Not available 03/06/2024 12:14:41 04/24/2024 04/24/2024 88 y/o male with hx of HTN, COPD, HLD, atrial fibrillation, here today for hospital follow up. Patient has symptomatic atrial fibrillation, he was started on amiodarone, with plans ultimately rhythm approach. Meantime, we will uptitrate medical therapy. [email or web address] Not available 05/07/2024 06:20:25 Plan of Treatment Reminders Order Date Submit Date Provider Last Modified By Organization Details Last Modified Time Details Appointments Establish ed Patient 10 2024 01:10P Osmany Ghosh M.D. Not available Not available Not available Lab BMP, serum or plasma 2023 024 [facility] (Lab), [address] [facility], [place], [address], 05/12/2024 13:27:12 TSH, serum or plasma 2023 024 [facility] (Lab), [address], [place], [address], 05/12/2024 12:48:18 BNP (B-type natriuret ic peptide), serum or plasma 2023 024 [facility] (Lab), [address] [place], [address], 05/12/2024 11:46:15 hepatic function panel, serum 2023 024 [email or web address] 3 [facility] (Lab), [address], [place], [address], 05/22/2024 12:24:03 Referral None recorded. Procedures None recorded. Surgeries None recorded. Imaging holter monitor - SN: [id number] @ 330 2023 024 [facility] (Radiology), [address] [place], [address], 04/24/2024 19:27:03 NM, myocardia l perfusion scan - Lexiscan Cardiolit e Stress/Re st 2023 024 [email or web address] 3 [facility] (Radiology), [address] [place], [address], 07/14/2024 12:12:18 Medication Orders losartan 25 mg tablet 2023 024 [place] [address] [facility], [address], [place], [id number], 04/24/2024 16:17:01 spironola ctone 25 mg tablet 2023 024 [facility], [address], [place], [id number], 04/25/2024 04:43:54 Entresto 24 mg-26 mg tablet 2023 024 [facility], [address], [place], [id number], 06/25/2024 14:03:43 amiodaron e 200 mg tablet 2023 024 [facility], [address], [place], [id number], 04/25/2024 04:43:54 ferrous sulfate 325 mg (65 mg iron) tablet 2023 024 [facility], [address], [place], [id number], 07/18/2024 11:39:13 Patient TargetsNo targets recorded. Patient Instructions Encounter Date Encounter Id Patient Instructions Last Modified By Organization Details Last Modified Time 01/16/2024 [id number] bronchiectasis: care instructions [email or web address] Not available 02/07/2024 00:17:55 04/24/2024 [id number] IHolden, acting as scribe, for Dr. Dany Baker, to document his verbalization of the History of Present Illness and Assessment and Plan. Holden Oliva 04/24/2024 3:59 p.m. I, Dr. Dany Baker, hereby attest that I personally reviewed the documentation in the History of Present Illness, Physical Exam, and Assessment and Plan and agree the documentation accurately represents these services and the decisions I made. I also reviewed the documented the Past, Family, and Social History and made changes and/or additions as needed. Dr. Dany Baker MD. [email or web address] Not available 04/24/2024 16:59:31 Reason for Referral None Reported. Results Created Date Observation Date Name Description Value Unit Range Abnormal Flag Note LastModifiedBy Organization Detail LastModifiedTime 03/07/2002/26/2024 , gege mendoza gram No observ ation record ed. BARCODE Not Available 2023 11:21:40 03/07/2002/27/2024 elect meg izquierdo am No observ ation record ed. BARCODE Not Available 2023 11:21:40 03/07/20 24 02/27/2024 XR, chest No observ ation record ed. BARCODE Not Available 2023 11:21:41 04/24/20 24 03/17/2024 felisa r monit or No observ ation record ed. [facility] [address], [place], [address], 04/25/2024 08:39:20 05/01/20 24 03/24/2024 felisa r monit or No observ ation record ed. [facility] (Radiology) [address], [place], [address], 05/01/2024 10:24:40 Result Notes None recorded. Problems Name Problem SNOMED Code Status Onset Date Resolution Date Notes Provider Name and Address Organization Details Recorded Time Bronchiectasis 24467313 Active 2015 Mackenzie Rosenberg HL[employer] INTERFACE DEVELOPER null, [place] - [facility] [place] 4 11:11:43 Hypercholester olemia 21573568 Active 2015 Mackenzieyue Rosenberg, HL7 INTERFACE DEVELOPER [place] [facility] [place] 4 11:11:43 Chronic obstructive pulmonary disease 78224287 Active 2015 Mackenzieyue Rosenberg, HL[employer] INTERFACE DEVELOPER [place] [facility] [place] 4 11:11:43 Constipation 31869743 Active 2016 Mackenzie Rosenberg [employer]7 INTERFACE DEVELOPER [place] [facility] [place] 4 11:11:43 Insomnia 016264862 Active 2022 Mackenzieyue Rosenberg, HL7 INTERFACE DEVELOPER [place] [facility] [place] 4 11:11:43 Gastroesophage al reflux disease 620274548 Active 2015 Mackenzieyue Rosenberg [employer] INTERFACE DEVELOPER [place] [facility] [place] 4 11:11:43 Benign prostatic hyperplasia 937252626 Active 2017 Mackenzie Rosenberg HL7 INTERFACE DEVELOPER [place] [facility] [place] 4 11:11:43 Patient encounter status 472507853 Active 2022 Mackenzie Rosenberg [employer] INTERFACE DEVELOPER [place] [facility] [place] 4 11:11:43 Pain in coccyx 45677398 Active 2016 Mackenzie Chet [employer]7 INTERFACE DEVELOPER [place] [facility] [place] 4 11:11:43 Unintentional weight loss 427926823 Active 2022 Mackenzie Chet [employer] INTERFACE DEVELOPER [place] [facility] [place] 4 11:11:43 Essential hypertension 48733351 Active 2015 Mackenzie Chet, HL7 INTERFACE DEVELOPER [place] [facility] [place] 4 11:11:43 Nodule of lung 611244800 Active 2015 Mackenzie Riccipreston HL7 INTERFACE DEVELOPER [place] [facility] [place] 4 11:11:43 Iron deficiency anemia 69835557 Active 2022 Mackenzie Riccipreston HL7 INTERFACE DEVELOPER [place] [facility] [place] 4 11:11:43 Problem Notes None recorded. Procedures Surgical History None recorded. Imaging Results Imaging Date Name Status LastModified by Organization Details LastModified Time 02/26/2024 US, echocardiogram completed [facility] Inform ation not available 03/07/2024 11:21:40 02/27/2024 electrocardiogram completed [facility] Informa tion not available 03/07/2024 11:21:40 02/27/2024 XR, chest completed BARCODE Information no t available 03/07/2024 11:21:41 03/17/2024 holter monitor completed [facility] [address], [place], [address], 04/25/2024 08:39:20 03/24/2024 holter monitor completed [facility] (Radiology) [address], [place], [address], 05/01/2024 10:24:40 Procedure Notes None recorded. Medical Equipment None Reported. Allergies Allergen ID Allergen Name Allergen Category Reaction Reaction Severity Criticality Documentation Date Start Date Code Code System Note Provider Name and Address Organization Details Recorded Time 914562 No known allergy (situatio n) Not available Not available Not available Not available 03/07/2024 [address] 6003 SNHILDA Rosenberg LPN null, [place] [facility] [place] 4 11:11:37 Medications Name Sig Start Date Stop Date Status Note LastModified by Organization Details LastModified Time atorvastati n 10 mg tablet Take 1 tablet every day by oral route for 30 days. active Not Available Not Available No t Available azithromyci n 250 mg tablet 01/15 completed Not Available Not Available Not Available diltiazem CD 180 mg capsule,ext ended release 24 hr Take 1 capsule every day by oral route for 30 days. 03/17 completed Not Available Not Available Not Available alprazolam 1 mg tablet Take 1 tablet 3 times a day by oral route for 30 days. active Not Available Not Available No t Available amiodarone 200 mg tablet Take 1 tablet twice a day by oral route as directed for 90 days. active Not Available Not Available No t Available ondansetron HCl 4 mg tablet 04/24 completed Not Available Not Available Not Available sulfamethox azole 800 mg-trimetho prim 160 mg tablet TAKE 1 TABLET BY MOUTH DAILY FOR 10 DAYS 03/17 completed Not Available Not Available Not Available omeprazole 40 mg capsule,del ayed release Take 1 capsule every day by oral route for 30 days. active Not Available Not Available No t Available doxycycline monohydrate 100 mg tablet TAKE 1 TABLET BY MOUTH EVERY DAY IN THE MORNING AND 1 TABLET IN THE EVENING FOR 10 DAYS 01/15 completed Not Available Not Available Not Available triamcinolo ne acetonide 0.1 % topical cream active Not Available Not Available Not Available spironolact one 25 mg tablet Take 1 tablet every day by oral route as directed for 90 days. active Not Available Not Available No t Available doxycycline monohydrate 100 mg capsule 03/17 completed Not Available Not Available Not Available pantoprazol e 40 mg tablet,vin yed release active Not Available Not Available Not Available losartan 25 mg tablet Take 1 tablet every day by oral route for 90 days. 04/24 completed Not Available Not Available Not Available montelukast 10 mg tablet Take 1 tablet every day by oral route in the evening for 30 days. 03/17 completed Not Available Not Available Not Available mirtazapine 15 mg tablet Take 1 tablet every day by oral route at bedtime for 30 days. 03/17 completed Not Available Not Available Not Available metoprolol succinate ER 25 mg tablet,exte nded release 24 hr Take 1 tablet every day by oral route. active Not Available Not Available No t Available methylpredn isolone 4 mg tablets in a dose pack active Not Available Not Available Not Available ondansetron 4 mg disintegrat ing tablet active Not Available Not Available N ot Available cefdinir 300 mg capsule 04/24 completed Not Available Not Available Not Available fluticasone propionate 50 mcg/actuati on nasal spray,suspe nsion active Not Available Not Available Not Available doxycycline hyclate 100 mg tablet active Not Available Not Available No t Available loratadine 10 mg tablet active Not Available Not Available Not Available amoxicillin 875 mg-potassiu m clavulanate 125 mg tablet 01/15 completed Not Available Not Available Not Available amoxicillin 500 mg-potassiu m clavulanate 125 mg tablet active Not Available Not Available Not Available Ventolin HFA 90 mcg/actuati on aerosol inhaler Inhale 2 puffs every 4 hours by inhalatio n route as needed. active Not Available Not Available No t Available Spiriva with HandiHaler 18 mcg and inhalation capsules INHALE CONTENTS OF 1 CAPSULE BY MOUTH EVERY DAY FOR BREATHING 01/15 completed Not Available Not Available Not Available FeroSul 325 mg (65 mg iron) tablet Take 1 tablet 3 times a week by oral route as directed for 90 days. active Not Available Not Available No t Available Eliquis 2.5 mg tablet Take 1 tablet twice a day by oral route. active Not Available Not Available No t Available fluticasone furoate 100 mcg-vilante rol 25 mcg/dose inhalation powder Inhale 1 puff every day by inhalatio n route. 03/17 completed Not Available Not Available Not Available Entresto 24 mg-26 mg tablet Take 1 tablet twice a day by oral route. active Not Available Not Available No t Available Vitals Date Recorded Body height Body mass index (BMI) Body weight Oxygen saturation Oxygen saturation in Arterial blood by Pulse oximetry Systolic blood pressure Diastolic blood pressure Provider Name and Address Organization Details Last Updated DateTime 4 162.56 cm 19.9 kg/m2 35249.4 3 g 95 % 95 % 119 mm[Hg] 59 mm[Hg] RENU Rodrigues [address] 4 16:53:00 Date Recorded Body height Body mass index (BMI) Body weight Oxygen saturation Oxygen saturation in Arterial blood by Pulse oximetry Heart rate Systolic blood pressure Diastolic blood pressure Provider Name and Address Organization Details Last Updated DateTime 4 162.56 cm 18.4 kg/m2 27927.1 g 97 % 97 % 97 /min 142 mm[Hg] 68 mm[Hg] Mackenzie Rosenberg LPN [address] 4 15:51:27 Date Recorded Body height Oxygen saturation Oxygen saturation in Arterial blood by Pulse oximetry Heart rate Body mass index (BMI) Body weight Systolic blood pressure Diastolic blood pressure Provider Name and Address Organization Details Last Updated DateTime 4 162.56 cm 97 % 97 % 119 /min 19.1 kg/m2 34516.7 5 g 120 mm[Hg] 70 mm[Hg] Danica Roy [address] 4 16:16:41 Social History Question Answer Notes LastModified by Organizat ion Details LastModified Time Tobacco Smoking Status Former Smoker COSME RodriguesLINHIshan [address] 01/16/2024 16:54:24 Do You Have An Advance Directive? No [email or web address] Information not available 01/16/2024 When Did You Quit Smoking? 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 03/17/2024 [email or web address] Information not available 03/17/2024 Sex: Unknown Functional Status None recorded. Mental Status None recorded. Family History Relationship Description Onset Age of this Age Resolved Age Notes LastModified by Organization Details LastModified Time Father No current problems or disability [email or web address] Not available 01/15 16:53:40 Mother No current problems or disability [email or web address] Not available 01/15 16:53:40 Medical History No medical history recorded. Immunizations Vaccine Type Date Status Note Provider Nam e and Address Organization Details Recorded Time zoster recombinant 06/29/2020 completed Mackenzie Prenger, HL7 INTERFACE DEVELOPER [place], [place] [facility] [place] 03/07/2024 11:11:48 Influenza, high-dose, quadrivalent, PF 06/08/2021 completed Mackenzie Prenger, HL7 INTERFACE DEVELOPER [place] [facility] [place] 03/07/2024 11:11:48 Influenza, high-dose, quadrivalent, PF 06/08/2022 completed Mackenzie Prenger, HL7 INTERFACE DEVELOPER [place] [facility] [place] 03/07/2024 11:11:48 Influenza, high-dose, quadrivalent, PF 06/20/2023 completed Macknezie Prenger, HL7 INTERFACE DEVELOPER [place] [facility] [place] 03/07/2024 11:11:48 Influenza, adjuvanted, quadrivalent, PF 06/01/2020 completed Mackenzie Prenger, HL7 INTERFACE DEVELOPER [place] [facility] [place] 03/07/2024 11:11:48 Tdap 02/22/2017 completed Mackenzie Prenger, HL7 INTERFACE DEVELOPER [place] [facility] [place] 03/07/2024 11:11:48 Hep B, unspecified formulation 12/08/1996 completed Mackenzei Prenger, HL7 INTERFACE DEVELOPER [place] [facility] [place] 03/07/2024 11:11:48 Hep B, unspecified formulation 01/12/1997 completed Mackenzie Prenger, HL7 INTERFACE DEVELOPER [place] [facility] [place] 03/07/2024 11:11:48 Hep B, unspecified formulation 06/11/1997 completed Mackenzie Prenger, HL7 INTERFACE DEVELOPER [place] [facility] [place] 03/07/2024 11:11:48 Influenza, high-dose, trivalent, PF 05/31/2018 completed Mackenzie Prenger, HL7 INTERFACE DEVELOPER [place] [facility] [place] 03/07/2024 11:11:48 Influenza, high-dose, trivalent, PF 06/02/2019 completed Mackenzie Prenger, HL7 INTERFACE DEVELOPER [place] [facility] [place] 03/07/2024 11:11:48 Influenza, high-dose, trivalent, PF 06/11/2017 completed Mackenzie Rosenberg LPN null, [place] [facility] [place] 03/07/2024 11:11:48 Influenza, high-dose, trivalent, PF 07/14/2016 completed Mackenzie Rosenberg LPN [place], [place] [facility] [place] 03/07/2024 11:11:48 Past Encounters Encounter ID Performer Location Encounter Start Date Encounter Closed Date Diagnosis/Indication Diagnosis SNOMED-CT Code Diagnosis ICD10 Code [id number] Rishabh Ghosh MD [facility] [address] [place] [address] 01/16/2024 16:04:27 01/16/2024 17:32:48 Bronchiectasis 38404300 J47.9 Solitary n odule of lung 418186420 R91.1 [id number] THEODORE URBAN PBPM_Card [facility] [address] [place] [address] 03/17/2024 14:39:58 03/17/2024 16:37:49 Paroxysmal atrial fibrillation 554422980 I48.0 Essential hypertension 52824041 I10 Chronic ob structive pulmonary disease 33751361 J44.9 Cardiomyopathy 93437901 I42.9 [id number] DANY BAKER MD [facility]BP[facility]Card 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 Charlie Melendrez [id number] [place] Charlie Melendrez 03/17/2024 1 [place] Charlie Melendrez [id number] Charlie Melendrez 03/17/2024 2 [facility] Charlie Melendrez [id number] [place] Charlie Melendrez 04/24/2024 1 [place]: [place] Charlie Melendrez [id number] Charlie Melendrez 04/24/2024 2 [facility]) Charlie Melendrez [id number] FRANCISCA Melendrez Notes Date Note Type Note Provider Name and Address Organization Details Recorded Time 01/16/2024 text/html 88-year-old male patient presents for evaluation of abnormal CAT scan. CT chest showed bronchiectatic changes, and a left lung nodule. Today he is accompanied by his . He mentioned that in the 1950s he had a left lower lobectomy involving his lingula for bronchiectasis. He has been having as a child multiple lung infections, which most likely resulted in his bronchiectasis. The bronchiectatic changes appear to be stable. He does have occasional cough and sputum production. He denies any significant shortness of breath. He is on albuterol nebulizer as needed. Today I discussed with him a bronchoscopy to obtain BAL, he declined. I also discussed with him a biopsy of the left lung nodule, he also declined. At this time we will repeat CT chest in 3 months from now. Rishabh Ghosh MD [address] [place] [address], [phone], [place] [facility] [place] 02/07/2024 00:17:57 03/17/2024 text/html 88 yo male with hx of HTN, COPD, HLD, atrial fibrillation, here today for hospital follow up. Pt reports he is doing well since discharge from hospital. Denies any palpitations, dizziness or syncope. Mild shortness of breath. Denies any chest pain. Pt has been checking his HR at home and the machine tells them his heart rhythm is periodically irregular But has consistently stayed under 100 bpm. 02/24/2027- 4 Hospitalized for atrial fibrillation and dehydration- place on metoprolol tartrate 25mg bid and eliquis 2.5mg bid- reduced dose due to his age and weight. Lab were in normal range. -02/26/2024 ECHO: EF 35-40%. LV size mildy increased. Impaired relaxation compatible with diastolic dysfunction. Prominent hypokinesis of the posteroseptal wall mildly dilated left atrium. There is mild to moderate. Tricuspid agitation with RVSP of 35 mmHg consistent with borderline pulmonary potential. Moderate mitral insufficiency is present. Mild aortic cyst present. Mild to moderate aortic insufficiency is noted. KASHMIR WAGNER NP-C [address] [place] [address], [phone], [facility] [place] 03/19/2024 08:41:18 04/24/2024 text/html 88 y/o male with hx of HTN, COPD, HLD, atrial fibrillation, here today for hospital follow up. The patient arrives today feeling good. The patient reports he has been mostly in AFIB at home, states this can be seen on blood pressure monitor. reports CBC is poor, reports iron has been low. It was recommended he be seen by button maker. He reports SOB easy with exertion. Patient has cardiomyopathy, ejection fraction of 35 to 40%, he is on Toprol XL, spironolactone, 02/24/2027- 4 Hospitalized for atrial fibrillation and dehydration- place on metoprolol tartrate 25mg bid and eliquis 2.5mg bid- reduced dose due to his age and weight. Lab were in normal range. -02/26/2024 ECHO: EF 35-40%. LV size mildy increased. Impaired relaxation compatible with diastolic dysfunction. Prominent hypokinesis of the posteroseptal wall mildly dilated left atrium. There is mild to moderate. Tricuspid agitation with RVSP of 35 mmHg consistent with borderline pulmonary potential. Moderate mitral insufficiency is present. Mild aortic cyst present. Mild to moderate aortic insufficiency is noted. DANY BAKER MD [address] [place] [address], [phone], [facility] [place] 05/07/2024 06:21:32
[2024-08-11] VITALS (111 sets, daily range): BP systolic 91–136; BP diastolic 39–73; PULSE 65–84; RESP 16–35; TEMP 36.5–37.6; O2SAT 88–99; BMI 16.5
[2024-08-11 03:17] LABS: Glucose Point of Care 95 mg/dL (70-110)
[2024-08-11 04:23] LABS: Bilirubin Urine Negative (Negative); Blood Urine Non-haemolysed trace (Negative); Glucose Urine UA Negative (Normal); Ketones Urine Negative (Negative); Leukocyte Esterase Urine Negative (Negative); Nitrate Urine Negative (Negative); Protein Urine Negative (Negative); Specific Gravity, Urine 1.014 (1.005-1.030); Urine Appearance Turbid (CLEAR); Urine Color Yellow (Yellow)
[2024-08-11 04:28] LABS: Add Urine Microscopic? YES; Bacteria Urine None Seen /hpf; Squamous Epithelial Cell Urine 0-5 /hpf (0-5); WBC Urine 0-5 /hpf (0-5)
--- NOTE | 2024-08-11 05:25 | XR_ITS ---
WS: [id number] Portable AP supine chest, 08/11/2024 Clinical Data: baseline Comparison: None. Findings: There is severe apical scarring bilaterally. There were scarring is on the left with apical pleural scars in upper lobe interstitial change and bullae. There is volume loss of the left lung wi th elevation of the left diaphragm. No nodules, masses or effusions are seen. There is a right to lef t mediastinal shift. The pulmonary vascularity is not increased and there is no pneumothorax. Monitor leads are on the chest wall. XR/XR chest 1V portable [id number] Impression: 1. Severe bilateral upper lobe scarring and bulla formation. 2. Volume loss of the left lung with right to left shift and elevation of left diaphragm. 3. These findings can be seen with prior tuberculosis.
--- NOTE | 2024-08-11 05:32 | PC.NURSE ---
Physician Communication Dr. Del Cid notified that patient increasingly confused and agitated, stating that he is tied down and that he won't stand for that, that's inhumane. Education provided to patient that he is not tied down, that cords are around him to monitor his vital signs because he is in the ICU. Patient then repeats the same thing. Verbal orders received from Dr. Tawny Bobby for an EKG, set of troponins, cbc, cmp, phos, mag, lactic, pt/inr, ABG, and a chest xray.
--- NOTE | 2024-08-11 05:41 | ECG_ITS ---
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 Measurements Intervals Saxis Rate: 69 P: 86 SC: 259 QRS: -31 QRSD: 138 T: 93 QT: 424 QTc: 455 Interpretive Statements SINUS RHYTHM WITH FIRST DEGREE AV BLOCK LEFT AXIS DEVIATION [QRS AXIS < -30] INTRAVENTRICULAR CONDUCTION DELAY [130+ ms QRS DURATION] LEFT VENTRICULAR HYPERTROPHY AND ST-T CHANGE [VOLTAGE CRITERIA PLUS ST/T ABNORMALITY] POSSIBLE SEPTAL MYOCARDIAL INFARCTION , OF INDETERMINATE AGE [30 ms Q WAVE IN V1/V2] LATERAL MYOCARDIAL INFARCTION , OF INDETERMINATE AGE [40+ ms Q WAVE AND/OR ST/T ABNORMALITY IN I/aVL/V5/V6] No previous ECG available for comparison Electronically Signed On 08-11-2024 16:35:04 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 [email or web address]
--- NOTE | 2024-08-11 05:48 | P.HP_ITS ---
Providers/Chief Complaint 2 Admitting Physician: Siomara Del Cid MD Primary Care Provider: Dr. Rodriguez at [facility] Chief Complaint: Weakness\Confusion\Hypertension History of Present Illness History is obtained primarily from the patient's , Ch[facility]is Melendrez - Home, . Charlie Melendrez is a 89 yo man w/ COPD, HTN, JACINDA, CHF, and paroxysmal atrial fibrillation, who was transferred from [facility] in [place], [place] to [facility] in [place], [place] for a higher level of care. The patient's states that the patient started having pain in his neck and shoulders and lost his appetite. He was sent to a Rim Technician for Afib and he has been in NSR for the last 2-3months. He would not eat and he has been getting weaker and weaker. Last Sunday, he went to his PCP's office where they saw the PCP's [employer]ITIES COUNCIL DIRECTOR. According to his PCP, he had [place] Spotted Fever 30yrs ago, so it was evaluated. THe serologies were abnormal, so he was placed on Doxycycline, but says that it did not help. Sunday, he did well, in that he seemed more alert, participated in conversations, and ate 4-5 more spoons that he normally would. On the morning of presentation to the OSH, he would not talk or eat. He would answer questions, if you got his face, but outside this, he was rather listless. Per , the patienet has been losing weight for the last 1.5yrs and it has been more drastic inthe last 3 months, such that he has lost at least 30lbs in the last 3 months. The patient's states that they normally go to [facility] but when she called EMS, they were told that the wait times were longer than one hour, so EMS took them To [facility]. At outside hospital (OSH), his EKG showed NSR with first-degree AV block, and no ST changes, and a QTc of 457. At the OSH, his ABG was 7.42/44/56, so he was placed on 2L NS. There was concern that he was becoming hypotensive and may need initiation of norepinephrine, so he was accepted to the ICU and the possibility that that is needed. Since admission, his BP has remained within normal limits. Medications/Allergies Home Medications Medication Instructions Recorded Confirmed Last Taken Type alprazolam 1 mg tablet 1 mg PO DAILY 08/11/24 08/11/24 08/09/24 20:00 History amiodarone 200 mg tablet 200 mg PO BID 08/11/24 08/11/24 08/10/24 20:30 History apixaban 2.5 mg tablet (Eliquis) 2.5 mg PO BID 08/11/24 08/11/24 08/10/24 20:30 History doxycycline hyclate 100 mg tablet 100 mg PO BID 08/11/24 08/11/24 08/10/24 20:30 History ferrous sulfate 325 mg (65 mg 325 mg PO QMWF 08/11/24 08/11/24 08/08/24 08:00 History iron) tablet (FeroSul) magnesium oxide 400 mg PO DAILY 08/11/24 08/11/24 Unknown History pantoprazole 40 mg tablet,delayed 40 mg PO DAILY 08/11/24 08/11/24 08/10/24 08:00 History release Allergies Allergy/AdvReac Type Severity Reaction Status Date / Time No Known Drug Allergies Allergy Unknown Verified 08/11/24 02:15 PFSH Acute 2 PFSH: Medical History (Updated 08/11/24 @ 07:56 by Siomara Del Cid MD) Congestive heart failure Paroxysmal A-fib COPD (chronic obstructive pulmonary disease) Surgical History (Updated 08/11/24 @ 06:19 by Siomara Del Cid MD) Hx laparoscopic cholecystectomy History of inguinal hernia repair, bilateral S/P lobectomy of lung left lower lobe in 1959 Family History (Updated 08/11/24 @ 06:19 by Siomara Del Cid MD) Daughter Thyroid disease Social History (Updated 08/11/24 @ 06:21 by Siomara Del Cid MD) Smoking and tobacco/nicotine status: former use of tobacco/nicotine Quit status (tobacco/nicotine): has quit using Year quit tobacco: 1970 Former quit date comment: Dipped snuff but quit in 1980. Alcohol intake: former Former alcohol use details: in 1970 Substance/Drug Use: never Vitals/I&O/Wt Last Vital Signs Temp 97.7 F 08/11/24 04:15 Pulse 71 08/11/24 04:15 Resp 28 H 08/11/24 04:15 BP 115/67 08/11/24 04:15 Pulse Ox 92 08/11/24 04:15 O2 Del Method Nasal Cannula 08/11/24 04:15 O2 Flow Rate 2 08/11/24 04:15 08/10/24 08/10/24 08/11/24 14:59 22:59 06:59 Output Total 425 / 425 Balance -425 / -425 Weight last 48 hrs Weight 43.5 kg Physical Exam 2 Const: GENERAL APPEARANCE: cooperative and comfortable NUTRITIONAL APPEARANCE: cachectic ORIENTATION/CONSCIOUSNESS: Yes awake and Yes confused HENMT: HEAD & SCALP: normocephalic and atraumatic NOSE: Normal external nose present EXTERNAL EAR: Yes external ears normal OTHER: Dry oropharynx. Eye: OTHER: PEERL, EOMI, normal conjunctiva bilaterally. Neck/C-Spine: GENERAL: Yes normal visual inspection and Yes trachea midline CAROTIDS: No bruit CERVICAL SPINE: Yes cervical ROM normal Lymph: OTHER: No cervical or supra clavicular lymphadenopathy. Resp: OTHER: Inspiratory crackles throughout the right lung kitchen, and inspiratory crackles in the left lower lung base. Cardio: OTHER: RRR, 3/6 harsh systolic murmur radiating to the carotids appreciated in the RUSB, 2-3/6 systolic murmurs in the LUSB, LLSB, and the apex. No or clear. Gallops, rubs GI: OTHER: Scaphoid abdomen, BS positive, nontender, nondistended, no guarding, no rigidity, no hepatosplenomegaly. Extremity: GENERAL: No clubbing, No cyanosis and No edema Neuro: CRANIAL NERVES: Yes CN normal except as noted SPEECH: Other neuro speech findings (Garbled speech) SENSORY EXAM: No sensory level loss detected MOTOR EXAM: Normal motor muscle tone present throughout Psych: OTHER: Difficult to assess given his mental status. Skin: OTHER: No sacrococcygeal ulcers, but he is at risk for an ulcer given his level of severe protein calorie malnutrition. Data 08/11/24 06:45 08/11/24 06:45 A&P Assessment and plan (1) Failure to thrive in adult: (2) Altered mental status: (3) Acute hypoxic respiratory failure: (4) Protein-calorie malnutrition, severe: Carmen Melendrez is a 89 yo man w/ COPD, HTN, JACINDA, CHF, & paroxysmal atrial fibrillation, who was transferred from [facility] in [place], [place] to [facility] in [place], [place] for a higher level of care. #Altered Mental Status - Consider MRI brain to r/o dementia if PCP indicates that it has not been done. #Failure to Thrive -I have asked the nurse to obtain a copy of the patient's records from the PCP as well as a copy of the discharge summary, H&P, and the last progress note for his last hospitalization at [facility]. -His renal function labs will enable me to decide on whether to get a CT chest abdomen and pelvis with contrast or without contrast. - F/u BCx and lactate #Acute hypoxic respiratory failure: #Hx of L. Lobe lobectomy in 1958 -Wean O2 as tolerated. F/u ABG. #Acute on Chronic CHF: Unknown type # Paroxysmal atrial fibrillation Afib - F/u ECHO - NPO for now. Held Amiodarone. #COPD - Not in Acute Exacerbation. Order duonebs scheduled. #Severe Protein Calorie Malnutrition -Consulted dietitian #Concern for Aspiration - Ordered swallow study. Kept him NPO #[place] Spotted Fever? - Continued Doxycycline. Again the PCPs records might lend better information as to what is going on. #Anxiety: On Alprazolam #GERD: PPI DVT ppx: Lovenox subq. Not full dose Attestations 2 Medical Necessity Statement*: Patient will need to be hospitalized for greater than 2 midnights for his altered mental status, failure to thrive, acute hypoxic respiratory failure, acute on chronic CHF. Other Coding Information Focused coding review requested Diagnoses Failure to thrive in adult R62.7 Altered mental status R41.82 Acute hypoxic respiratory failure J96.01 Protein-calorie malnutrition, severe E43
--- NOTE | 2024-08-11 06:10 | USCV_ITS ---
Charlie Melendrez Age: 89 Gender: M : 1935 Exam Date: 08/11/2024 08:39 Ordering Phys: Siomara Del Cid MD Technologist: CT [place] [facility] [place]ication: murmur BP: 125 / 61 HR: 70 Rhythm: Sinus Technical Quality: Adequate MEASUREMENTS (Male / Female) Normal Values 2D ECHO LVOT Diameter 2.1 cm LV Ejection Fraction MOD 4C 59.3 % LV Ejection Fraction MOD 2C 47.2 % LV Ejection Fraction 2C AL 47.2 % LA Diameter 3.0 cm RA Systolic Volume 4C AL 25.0 ml RA Systolic Volume 4C MOD 24.5 ml LA Sys Volume AL 56.4 cm cubed LA Sys Volume Index AL 42.4 cm cubed/m squared Aorta at Sinotubular Diameter 2.4 cm IVC Diameter 1.1 cm M-MODE LA Ao Ratio MM 1.0 AV Cusp Separation MM 1.5 cm DOPPLER AV Peak Velocity 276.0 cm/s LVOT Peak Velocity 93.0 cm/s AV Area Cont Eq vti 1.1 cm squared AV Area Cont Eq pk 1.2 cm squared MV Peak Velocity 114.0 cm/s MV Area PHT 3.7 cm squared Mitral E to A Ratio 0.9 TV Peak Velocity 189.8 cm/s TR Peak Velocity 214.5 cm/s TR Peak Gradient 18.4 mmHg TR Mean Velocity 136.0 cm/s TR Mean Gradient 9.2 mmHg TR Velocity Time Integral 47.2 cm TV Peak E Velocity 85.0 cm/s PV Peak Velocity 130.0 cm/s FINDINGS Left Ventricle Left ventricle is normal in size. LV systolic function is normal with EF of 50 to 55%. No regional wall motion abnormalities are seen. Right Ventricle Normal in size and function Right Atrium Normal in size Left Atrium Dilated Mitral Valve Structurally normal valve. Moderate mitral regurgitation. Aortic Valve Aortic valve is thickened and calcified. Moderate aortic stenosis with aortic valve area of 1.08 cm squared and mean gradient across aortic valve of 18 mmHg. Moderate aortic regurgitation. Tricuspid Valve Mild tricuspid agitation. Insufficient TR jet to evaluate RVSP. Pulmonic Valve Mild pulmonic regurgitation. Pericardium Normal Aorta Normal in size IVC Appears to be normal CONCLUSIONS LV systolic function is normal with EF of 50-55% Moderate mitral regurgitation Moderate aortic stenosis. Moderate aortic regurgitation. Mild tricuspid regurgitation Mild pulmonic regurgitation. No comparison studies are available. Jair Zimmerman MD (Electronically Signed) Final Date: 16 August 2024 11:58 S
[2024-08-11] MEDS: doxycycline 100 MG in sodium chloride 0.9% (plus) 100 ML IV ×2 (06:39→18:13)
[2024-08-11] MEDS: haloperidol inj 5 mg/mL INJ 1 mL 4 MG IVP (06:39)
[2024-08-11 07:04] LABS: Basophils % 0.1 %; Eosinophils # 0.3 10^3/uL (0.0-0.8); Eosinophils % 3.3 %; Hematocrit 29.4 % (37-53); Lymphocytes # 0.6 10^3/uL (0.8-4.8); Lymphocytes % 5.6 %; Mean Corpuscular HGB Conc 30.3 g/dL (30-55); Mean Corpuscular Hemoglobin 25.7 pg (27-33); Mean Platelet Volume 9.6 fL (7.4-10.4); Monocytes # 0.7 10^3/uL (0.2-0.9); Monocytes % 7.2 %; Neutrophils # 8.03 10^3/uL (1.8-7.7); Neutrophils % 82.2 %; Nucleated Red Blood Cells % 0 %; Platelet Count 378 10^3/cmm (157-399); Red Blood Count 3.46 10^6/uL (3.85-5.65); Red Cell Distribution Width 16.5 % (12.1-15.1); White Blood Count 9.77 10^3/uL (3.29-11.43)
[2024-08-11 07:18] LABS: INR 1.41 (0.8-1.2)
[2024-08-11 07:19] LABS: Lactate (Lactic Acid level) 1.3 mmol/L (0.5-2.2)
[2024-08-11 07:23] LABS: Alanine Aminotransferase 39 U/L (0-41); Albumin Level 2.2 g/dL (3.5-5.2); Alkaline Phosphatase 97 U/L (40-130); Anion Gap 11.7 (5-19); Aspartate Amino Transferase 28 U/L (0-40); Blood Urea Nitrogen 18 mg/dL (8-23); Calcium 8.3 mg/dL (8.5-10.5); Carbon Dioxide 28 mmol/L (22-29); Chloride 100 mmol/L (98-107); Creatinine Clr Calc Pharmacy 29.1098; Globulin 3.1 g/dL (1.3-4.6); Glucose 95 mg/dL (65-115); Magnesium 1.8 mg/dL (1.7-2.3); Osmolality Calculated 282 mOsm/kg (285-295); Phosphorus 2.4 mg/dL (2.5-4.5); Potassium 4.7 mmol/L (3.5-5.1); Sodium 135 mmol/L (136-145); Total Bilirubin 0.4 mg/dL (0.15-1.2); Total Protein 5.3 g/dL (6.6-8.7)
[2024-08-11 07:24] LABS: Troponin(5th) Baseline 20 ng/L (0-15)
[2024-08-11 07:30] LABS: Glucose Point of Care 111 mg/dL (70-110)
--- NOTE | 2024-08-11 07:39 | FL_ITS ---
WS: [id number] Modified barium swallow, 08/11/2024 Clinical Data: Oropharyngeal dysphagia Comparison: None. Fluoroscopy time: 2min [id number] # of spot films: 2 Findings: The patient had a prolonged oral phase with solids and minimal oral residue which cleared with swallo wing. There was minimal residue in the vallecula and piriform sinuses which also cleared with swallow ing. There is minimal penetration with thin liquids but no aspiration. The barium tablet passed tami lly from the oral pharynx into the hypopharynx then the esophagus and finally the stomach. FL/FL barium swallow modifd [id number] Impression: 1. Prolonged oral phase with solids and minimal residue which cleared with swal lowing. 2. Minimal residue in vallecula and piriform sinuses which cleared with swallow ing. 3. Minimal penetration but no aspiration with thin liquids.
[2024-08-11] MEDS: ipratropium-albuterol 3 mL Neb INHALATION ×3 (08:16→19:40)
[2024-08-11] MEDS: pantoprazole 40 mg SDV IVP (08:36)
[2024-08-11] MEDS: enoxaparin 30 mg/0.3 mL Syringe SUBCUT (08:36)
[2024-08-11] MEDS: acetaminophen 325 mg Tablet 650 MG PO (08:36)
--- NOTE | 2024-08-11 09:31 | CT_ITS ---
WS: [id number] CT CHEST, ABDOMEN, AND PELVIS TECHNIQUE: Contrast-enhanced CT of the chest, abdomen, and pelvis with coronal and sagittal reformatt ed images. CLINICAL INFORMATION: failure to thrive COMPARISON: None. DLP: 432.[address] scans at [facility] use at least one of these dose optimization techniques: automated e xposure control; mA and/or kV adjustment per patient size (includes targeted exams where dose is matc hed to clinical indication); or iterative reconstruction. CT CHEST: Advanced chronic emphysematous changes. Cachexia. Cystic bronchiectasis in the upper lobes with a sma ll amount of fluid. Scattered fibrotic changes. Patchy nodular opacities in the RIGHT middle lobe the largest measuring 8 mm. Patchy infiltrates may be infectious or inflammatory in the RIGHT upper lobe anteriorly. A few patchy opacities in the RIGHT lower lobe. Scattered areas of cystic bronchiectasis throughout the LEFT lung. Subsegmental atelectasis in the LEFT lower lobe. Volume loss LEFT lung. Mild aortic calcification. Normal caliber thoracic aorta. No mediastinal or hi lar lymphadenopathy. Moderate thoracic kyphosis. Hypertrophic changes thoracic spine. Chronic elevati on LEFT hemidiaphragm. CT ABDOMEN AND PELVIS: Normal liver. Prior cholecystectomy. Spleen granulomas. Adrenal glands are normal. Normal renal paren chymal enhancement. No hydronephrosis. LEFT renal cyst. Normal pancreatic parenchymal enhancement. No rmal GE junction. Stomach is decompressed. Mild aortic calcification. Celiac and SMA are patent with mild stenosis of the origins. Slightly ectatic distal abdominal aorta. Mild aortic calcification. Sig moid constipation. Rectal distention. Scattered stool in the colon. No evidence of high-grade small o r large bowel obstruction. Osteopenia. CT/CT chest abdpel w/*[id number] IMPRESSION: 1. Scattered areas of cystic bronchiectasis some with fluid. Fibrosis in both lungs with volume loss LEFT lung. 2. Areas of patchy hazy opacities in the RIGHT upper lobe and RIGHT middle lob e may be infectious or inflammatory. No focal pneumonia. 3. A few nodules in the RIGHT upper lobe the largest subpleural in location me asuring 8.7 mm RIGHT upper lobe. Recommend 3-month follow-up. 4. Volume loss LEFT lung with elevation LEFT hemidiaphragm. 5. Prior cholecystectomy. 6. No acute findings in the abdomen or pelvis.
[2024-08-11 10:08] LABS: Troponin 5 2HR 16.87 ng/L (0-15)
[2024-08-11 10:10] LABS: Troponin 5 2HR Delta -3.13 ABS# (0-10)
[2024-08-11] MEDS: iohexol 350 mg/mL 500 mL Btl (per mL) IV (10:22)
--- NOTE | 2024-08-11 12:26 | PC.SOCIAL ---
IMM Update Pg. 2 of IMM Updated. Initialed, dated, and timed copy in chart. Copy provided at bedside.
[2024-08-11 13:33] LABS: Troponin 5 6HR 20.81 ng/L (0-15); Troponin 5 6HR Delta 0.81 ng/L (0-12)
--- NOTE | 2024-08-11 16:38 | P.PN_ITS ---
Subjective 2 Subjective: Seen sitting up in bed. He states he has a loss of appetite. Does not feel like eating. Denies any pain at this time. Underwent a swallow evaluation this morning with modified barium swallow. Speech therapy has recommended dysphagia level 6 diet and thin liquids. Family present at bedside. ? CT chest and pelvis is pending at this time. ? Patient is on room air, vitals are stable. No vasopressor requirement at this time. Family states he has had a progressive decline and he was admitted at [place] recently as well and was sent home after they repleted him with IV fluids . They state they had a talk regarding advanced age and decline. 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 Vitals/I&O/Wt Last Vital Signs Temp 97.7 F 08/11/24 04:15 Pulse 68 08/11/24 15:45 Resp 27 H 08/11/24 15:45 BP 101/39 08/11/24 16:00 Pulse Ox 96 08/11/24 15:45 O2 Del Method Room Air 08/11/24 13:40 O2 Flow Rate 1 08/11/24 08:19 08/11/24 08/11/24 08/11/24 06:59 14:59 22:59 Intake Total 100 / 100 Output Total 425 / 425 Balance -425 / -425 100 / 100 Weight last 48 hrs Weight 43.5 kg Weight 43.5 kg Physical Exam 2 Const: GENERAL APPEARANCE: cooperative and comfortable NUTRITIONAL APPEARANCE: cachectic ORIENTATION/CONSCIOUSNESS: Yes awake and Yes confused HENMT: COMMON NORMALS: normocephalic, atraumatic, external ears normal and Normal external nose present HEAD & SCALP: normocephalic and atraumatic N OSE: Normal external nose present EXTERNAL EAR: Yes external ears normal O THER: Dry oropharynx. Eye: OTHER: PEERL, EOMI, normal conjunctiva bilaterally. Neck/C-Spine: GENERAL: Yes normal visual inspection and Yes trachea midline CAROTIDS: No bruit CERVICAL SPINE: Yes cervical ROM normal Lymph: OTHER: No cervical or supra clavicular lymphadenopathy. Resp: OTHER: Inspiratory crackles throughout the right lung kitchen, and inspiratory crackles in the left lower lung base. Cardio: OTHER: RRR, 3/6 harsh systolic murmur radiating to the carotids appreciated in the RUSB, 2-3/6 systolic murmurs in the LUSB, LLSB, and the apex. No or clear. Gallops, rubs Extremity: GENERAL: No clubbing, No cyanosis and No edema Neuro: CRANIAL NERVES: Yes CN normal except as noted SPEECH: Other neuro speech findings (Garbled speech) SENSORY EXAM: No sensory level loss detected MOTOR EXAM: Normal motor muscle tone present throughout Data 08/11/24 06:45 08/11/24 06:45 Micro: Microbiology 08/11/24 09:29 Blood Culture - Preliminary Blood SPECIMEN COLLECTED 08/11/24 09:22 Blood Culture - Preliminary Blood SPECIMEN COLLECTED A&P Assessment and plan (1) Failure to thrive in adult: (2) Altered mental status: (3) Acute hypoxic respiratory failure: (4) Protein-calorie malnutrition, severe: Plan Charlie Melendrez is a 89 yo man w/ COPD, HTN, JACINDA, CHF, & paroxysmal atrial fibrillation, who was transferred from [facility] in [place], [place] to [facility] in [place], [place] for a higher level of care. #Altered Mental Status - Consider MRI brain to r/o dementia if PCP indicates that it has not been done. #Failure to Thrive -I have asked the nurse to obtain a copy of the patient's records from the PCP as well as a copy of the discharge summary, H&P, and the last progress note for his last hospitalization at [facility]. -His renal function labs will enable me to decide on whether to get a CT chest abdomen and pelvis with contrast or without contrast. - F/u BCx and lactate #Acute hypoxic respiratory failure: #Hx of L. Lobe lobectomy in 1959 -Wean O2 as tolerated. F/u ABG. #Acute on Chronic CHF: Unknown type # Paroxysmal atrial fibrillation Afib - F/u ECHO - NPO for now. Held Amiodarone. #COPD - Not in Acute Exacerbation. Order duonebs scheduled. #Severe Protein Calorie Malnutrition -Consulted dietitian #Concern for Aspiration - Ordered swallow study. Kept him NPO #[place] Spotted Fever? - Continued Doxycycline. Again the PCPs records might lend better information as to what is going on. #Anxiety: On Alprazolam #GERD: PPI DVT ppx: Lovenox subq. Not full dose 08/11/2024 Patient is not altered at this time and is alert oriented x 2. I do agree with failure to thrive diagnosis and agree with the admitting physician's assessment and plan. CT chest and pelvis is pending at this time. Blood cultures lactic acid is pending. Echo is pending. ? Dietitian has been consulted ? Patient underwent modified barium swallow this morning. Dysphagia level 6 diet to be continued. ? Continue on doxycycline. ? Family states that he does have a history of bronchiectasis in the past. ? Patient is requiring 1 L of oxygen at this time and at home he is not on any. ? Continue patient on doxycycline 100 mg every 12 hours for presumed [place] spotted fever?. Will discuss with rheumatology in a.m. ? Continue meropenem for possible pneumonia. May de-escalate after imaging studies are available. ? Check procalcitonin ? Check phosphorus, CMP CBC in AM. ? Had a discussion with family regarding addition of protein shakes for patient. Further management decisions to be made as more information becomes available. FULL CODE Transfer to [facility] Attestations 2 Medical Necessity Statement*: failure to thrive, needs diagnostic workup, possible dc home in 48 hours. Diagnoses Failure to thrive in adult R62.7 Altered mental status R41.82 Acute hypoxic respiratory failure J96.01 Protein-calorie malnutrition, severe E43
[2024-08-11] MEDS: meropenem 1,000 mg SDV 1000 MG IVP (18:12)
[2024-08-11 21:23] LABS: Glucose Point of Care 94 mg/dL (70-110)
[2024-08-11] MEDS: efferdent effervescent 1 EACH DENTAL (21:57)
[2024-08-12] VITALS (22 sets, daily range): BP systolic 102–128; BP diastolic 42–63; PULSE 66–85; RESP 12–33; TEMP 36.7–37.3; O2SAT 94–96
[2024-08-12 01:18] LABS: Glucose Point of Care 88 mg/dL (70-110)
[2024-08-12] MEDS: ipratropium-albuterol 3 mL Neb INHALATION ×3 (02:59→13:45)
[2024-08-12 04:05] LABS: Glucose Point of Care 93 mg/dL (70-110)
[2024-08-12 05:07] LABS: Basophils % 0.2 %; Eosinophils # 0.2 10^3/uL (0.0-0.8); Eosinophils % 2.8 %; Hematocrit 29.8 % (37-53); Lymphocytes # 0.6 10^3/uL (0.8-4.8); Lymphocytes % 6.3 %; Mean Corpuscular HGB Conc 30.2 g/dL (30-55); Mean Corpuscular Hemoglobin 25.4 pg (27-33); Mean Corpuscular Volume 84.2 fl (82-101); Monocytes # 0.7 10^3/uL (0.2-0.9); Monocytes % 8.1 %; Neutrophils # 6.98 10^3/uL (1.8-7.7); Neutrophils % 80.3 %; Nucleated Red Blood Cells % 0 %; Platelet Count 366 10^3/cmm (157-399); Red Blood Count 3.54 10^6/uL (3.85-5.65); Red Cell Distribution Width 16.6 % (12.1-15.1); White Blood Count 8.69 10^3/uL (3.29-11.43)
[2024-08-12] MEDS: meropenem 1,000 mg SDV 1000 MG IVP (05:27)
[2024-08-12 05:31] LABS: Glucose Point of Care 114 mg/dL (70-110)
[2024-08-12 05:36] LABS: Alanine Aminotransferase 37 U/L (0-41); Albumin Level 2.2 g/dL (3.5-5.2); Alkaline Phosphatase 98 U/L (40-130); Anion Gap 12.6 (5-19); Aspartate Amino Transferase 27 U/L (0-40); Blood Urea Nitrogen 13 mg/dL (8-23); Calcium 8.9 mg/dL (8.5-10.5); Carbon Dioxide 27 mmol/L (22-29); Chloride 99 mmol/L (98-107); Glucose 93 mg/dL (65-115); Magnesium 1.8 mg/dL (1.7-2.3); Osmolality Calculated 278 mOsm/kg (285-295); Phosphorus 2.4 mg/dL (2.5-4.5); Potassium 4.6 mmol/L (3.5-5.1); Sodium 134 mmol/L (136-145); Total Bilirubin 0.5 mg/dL (0.15-1.2); Total Protein 6.2 g/dL (6.6-8.7)
[2024-08-12] MEDS: doxycycline 100 MG in sodium chloride 0.9% (plus) 100 ML IV (05:42)
[2024-08-12] MEDS: pantoprazole 40 mg SDV IVP (08:39)
[2024-08-12] MEDS: enoxaparin 30 mg/0.3 mL Syringe SUBCUT (08:39)
--- NOTE | 2024-08-12 12:11 | P.DS_ITS ---
Discharge Providers Date of Admission: 08/10/24 22:47 Date of Discharge: August 12, 2024 Attending Provider at Admission: Siomara Del Cid MD Attending Provider at Discharge: Alma Stahl MD Diagnoses at Discharge Discharge Diagnosis (1) Failure to thrive in adult: Status: Acute (2) Altered mental status: Status: Resolved (3) Acute hypoxic respiratory failure: Status: Resolved (4) Protein-calorie malnutrition, severe: Status: Acute Reason for Visit Reason for Visit: Weakness\Confusion\Hypertension Hospital Course Hospital Course Patient was brought in for failure to thrive and altered mental status. He started eating better during hospitalization. Dysphagia 6 level diet was started. Speech evaluation was done, modified barium swallow was done. Protein shakes were added. All of his medical workup was negative. CT chest and pelvis was also done which showed possible right upper lobe right middle lobe pneumonia. He was placed on meropenem during hospitalization and sent home on doxycycline and levofloxacin going forward. He is to follow-up with his primary care doctor at discharge. Family updated over the phone who are in agreement. I believe patient may have early onset dementia and did have some sundowners. He was given neurology follow-up at discharge. He was on room air by the time of discharge. Physical Exam Const: GENERAL APPEARANCE: cooperative and comfortable NUTRITIONAL APPEARANCE: cachectic ORIENTATION/CONSCIOUSNESS: Yes awake and Yes oriented to person HENMT: COMMON NORMALS: normocephalic, atraumatic, external ears normal and Normal external nose present HEAD & SCALP: normocephalic and atraumatic NOSE: Normal external nose present EXTERNAL EAR: Yes external ears normal OTHER: Dry oropharynx. Eye: OTHER: PEERL, EOMI, normal conjunctiva bilaterally. Neck/C-Spine: GENERAL: Yes normal visual inspection and Yes trachea midline CAROTIDS: No bruit CERVICAL SPINE: Yes cervical ROM normal Lymph: OTHER: No cervical or supra clavicular lymphadenopathy. Resp: OTHER: Lungs clear to auscultation bilaterally no gross wheezes or rhonchi. Cardio: OTHER: RRR, 3/6 harsh systolic murmur radiating to the carotids appreciated in the RUSB, 2-3/6 systolic murmurs in the LUSB, LLSB, and the apex. No or clear. Gallops, rubs Extremity: GENERAL: No clubbing, No cyanosis and No edema Neuro: SENSORIUM/ORIENTATION: Yes oriented to person CRANIAL NERVES: Yes CN normal except as noted SPEECH: Other neuro speech findings (Garbled speech) SENSORY EXAM: No sensory level loss detected MOTOR EXAM: Normal motor muscle tone present throughout Discharge Data Studies Completed and Pending Completed Studies During Hospitalization Category Date Time Status CT chest abdomen pelvis [CT chest abdpel w/*[id number] Cat Scan 08/11/24 09:31 Completed ] Routine Modified barium swallow [FL barium swallow modifd [id number] Exams 08/11/24 07:39 Completed ] Routine XR chest 1V portable [id number] Routine Exams 08/11/24 05:25 Completed Pending at discharge Category Date Time Status Blood Culture Stat Lab 08/11/24 09:29 Results CV. echo complete* [id number] Routine Ultrasound 08/11/24 06:10 Taken Radiology Impressions Chest X-Ray 08/11/24 05:25 Impression: 1. Severe bilateral upper lobe scarring and bulla formation. 2. Volume loss of the left lung with right to left shift and elevation of left diaphragm. 3. These findings can be seen with prior tuberculosis. Modified Barium Swallow 08/11/24 07:39 Impression: 1. Prolonged oral phase with solids and minimal residue which cleared with swallowing. 2. Minimal residue in vallecula and piriform sinuses which cleared with swa llowing. 3. Minimal penetration but no aspiration with thin liquids. Chest/Abdomen/Pelvis CT 08/11/24 09:31 IMPRESSION: 1. Scattered areas of cystic bronchiectasis some with fluid. Fibrosis in both lungs with volume loss LEFT lung. 2. Areas of patchy hazy opacities in the RIGHT upper lobe and RIGHT middle lobe may be infectious or inflammatory. No focal pneumonia. 3. A few nodules in the RIGHT upper lobe the largest subpleural in location measuring 8.7 mm RIGHT upper lobe. Recommend 3-month follow-up. 4. Volume loss LEFT lung with elevation LEFT hemidiaphragm. 5. Prior cholecystectomy. 6. No acute findings in the abdomen or pelvis. Laboratory Results WBC 8.69 10^3/uL (3.29-11.43) 08/12/24 04:35 RBC 3.54 10^6/uL (3.85-5.65) L 08/12/24 04:35 Hgb 9.00 g/dL (11.27-16.99) L 08/12/24 04:35 Hct 29.8 % (37-53) L 08/12/24 04:35 MCV 84.2 fl (82-101) 08/12/24 04:35 MCH 25.4 pg (27-33) L 08/12/24 04:35 MCHC 30.2 g/dL (30-55) 08/12/24 04:35 RDW 16.6 % (12.1-15.1) H 08/12/24 04:35 Plt Count 366 10^3/cmm (157-399) 08/12/24 04:35 MPV 10.0 fL (7.4-10.4) 08/12/24 04:35 Neut % (Auto) 80.3 % 08/12/24 04:35 Lymph % (Auto) 6.3 % 08/12/24 04:35 [place] % (Auto) 8.1 % 08/12/24 04:35 Eos % (Auto) 2.8 % 08/12/24 04:35 Baso % (Auto) 0.2 % 08/12/24 04:35 Neut # (Auto) 6.98 10^3/uL (1.8-7.7) 08/12/24 04:35 Lymph # (Auto) 0.6 10^3/uL (0.8-4.8) L 08/12/24 04:35 [place] # (Auto) 0.7 10^3/uL (0.2-0.9) 08/12/24 04:35 Eos # (Auto) 0.2 10^3/uL (0.0-0.8) 08/12/24 04:35 Baso # (Auto) 0.0 10^3/uL (0.0-0.1) 08/12/24 04:35 Nucleated RBC % (auto) 0 % 08/12/24 04:35 Nucleated RBCs # 0.0 /100WBC 08/12/24 04:35 PT 17.70 SECONDS (12.1-14.9) H 08/11/24 06:45 INR 1.41 (0.8-1.2) H 08/11/24 06:45 Sodium 134 mmol/L (136-145) L 08/12/24 04:35 Potassium 4.6 mmol/L (3.5-5.1) 08/12/24 04:35 Chloride 99 mmol/L (98-107) 08/12/24 04:35 Carbon Dioxide 27 mmol/L (22-29) 08/12/24 04:35 Anion Gap 12.6 (5-19) 08/12/24 04:35 BUN 13 mg/dL (8-23) 08/12/24 04:35 Creatinine 1.2 mg/dL (0.7-1.2) 08/12/24 04:35 GFR Calculation Not Reportable 08/12/24 04:35 Glucose 93 mg/dL (65-115) 08/12/24 04:35 POC Glucose 114 mg/dL (70-110) H 08/12/24 05:26 Calculated Osmolality 278 mOsm/kg (285-295) L 08/12/24 04:35 Lactate 1.3 mmol/L (0.5-2.2) 08/11/24 06:45 Calcium 8.9 mg/dL (8.5-10.5) 08/12/24 04:35 Phosphorus 2.4 mg/dL (2.5-4.5) L 08/12/24 04:35 Magnesium 1.8 mg/dL (1.7-2.3) 08/12/24 04:35 Total Bilirubin 0.5 mg/dL (0.15-1.2) 08/12/24 04:35 AST 27 U/L (0-40) 08/12/24 04:35 ALT 37 U/L (0-41) 08/12/24 04:35 Alkaline Phosphatase 98 U/L (40-130) 08/12/24 04:35 Troponin T Baseline 20 ng/L (0-15) H 08/11/24 06:45 Troponin T 120 Minute 16.87 ng/L (0-15) H 08/11/24 09:22 Delta Troponin T -3.13 ABS# (0-10) L 08/11/24 09:22 Troponin T Hi Sens 6Hr 20.81 ng/L (0-15) H 08/11/24 12:58 Troponin T Hi Sens 6Hr Delta 0.81 ng/L (0-12) 08/11/24 12:58 Total Protein 6.2 g/dL (6.6-8.7) L 08/12/24 04:35 Albumin 2.2 g/dL (3.5-5.2) L 08/12/24 04:35 Globulin 4.0 g/dL (1.3-4.6) 08/12/24 04:35 Urine Color Yellow (Yellow) 08/11/24 03:50 Urine Appearance Turbid (CLEAR) A 08/11/24 03:50 Urine pH 8.0 (5-7) A 08/11/24 03:50 Ur Specific [place] 1.014 (1.005-1.030) 08/11/24 03:50 Urine Protein Negative (Negative) 08/11/24 03:50 Urine Glucose (UA) Negative (Normal) 08/11/24 03:50 Urine Ketones Negative (Negative) 08/11/24 03:50 Urine Blood Non-haemolysed trace (Negative) 08/11/24 03:50 Urine Nitrate Negative (Negative) 08/11/24 03:50 Urine Bilirubin Negative (Negative) 08/11/24 03:50 Urine Urobilinogen 1.0 mg/dL (Negative) 08/11/24 03:50 Ur Leukocyte Esterase Negative (Negative) 08/11/24 03:50 Urine RBC 6-10 /hpf (0-2) 08/11/24 03:50 Urine WBC 0-5 /hpf (0-5) 08/11/24 03:50 Ur Squamous Epith Cells 0-5 /hpf (0-5) 08/11/24 03:50 Amorphous Sediment Not Reportable 08/11/24 03:50 Urine Bacteria None seen /hpf (NONE) 08/11/24 03:50 Hyaline Casts 0.40 /lpf 08/11/24 03:50 Vitals Last Vital Signs Temp 98.1 F 08/12/24 08:00 Pulse 69 08/12/24 08:00 Resp 27 H 08/12/24 08:00 BP 102/56 08/12/24 08:00 Pulse Ox 94 08/12/24 08:00 O2 Del Method Room Air 08/12/24 08:00 O2 Flow Rate 1 08/11/24 08:19 Discharge Plan Discharge Patient Disposition: Home Health Service Condition: Stable Prescriptions: New levofloxacin 750 mg tablet 750 mg PO DAILY 6 Days Qty: 6 0RF Continued alprazolam 1 mg tablet 1 mg PO DAILY amiodarone 200 mg tablet 200 mg PO BID pantoprazole 40 mg tablet,delayed release (DR/EC) 40 mg PO DAILY ferrous sulfate [FeroSul] 325 mg (65 mg iron) tablet 325 mg PO QMWF Eliquis 2.5 mg tablet 2.5 mg PO BID magnesium oxide 400 mg magnesium Tablet 400 mg PO DAILY doxycycline hyclate 100 mg tablet 100 mg PO BID Qty: 12 0RF Discharge Orders: Discharge Order (Routine); Ordered 08/12/24 Ordered By: Alma Stahl Other Ambulatory Orders: MR head wo con* [id number] (Routine) Timeframe: 1 Day Facility: [facility] - Location: Radiology [place] Ordered By: Alma Stahl Referrals: [facility] [Outside] Elle Schmitz MD [Physician] - 08/21/24 12:30 pm (Early onset dementia ) Discharge Diet: Cardiac Discharge Activity: Use walker/crutches as instructed and As per PT/OT instructions Patient Instructions: Levofloxacin (By mouth), Heart Healthy Diet (DC), Malnutrition (DC), Altered Mental Status (ED), Opioid Safety Discharge Attestations Time Spent in Discharge Care*: greater than 30 min Quality Metrics Clinical Quality Measures [ No reported AMI, CVA or VTE this stay] Coding Level of Care Code Acute Code for Chg Fwd Diagnoses Failure to thrive in adult R62.7 Altered mental status R41.82 Acute hypoxic respiratory failure J96.01 Protein-calorie malnutrition, severe E43
--- NOTE | 2024-08-12 14:41 | PC.NURSE ---
Patient left ICU via wheelchair, all ivs and monitoring equipment removed before discharge. Patient discharged in stable condition
== END 2024-08-12 14:35 | disposition home health service (06) | DRG 314 ==
PROVIDERS: Admitting Provider Internal Medicine; Visit Provider Internal Medicine
DX: I95.9 Hypotension, unspecified (principal); E43 Unspecified severe protein-calorie malnutrition; J96.01 Acute respiratory failure with hypoxia; J18.9 Pneumonia, unspecified organism; Z68.1 Body mass index [BMI] 19.9 or less, adult; R62.7 Adult failure to thrive; F03.90 Unspecified dementia, unspecified severity, without behavioral disturbance, psychotic disturbance, mood disturbance, and anxiety; R13.10 Dysphagia, unspecified; J44.9 Chronic obstructive pulmonary disease, unspecified; I11.0 Hypertensive heart disease with heart failure; I50.9 Heart failure, unspecified; D50.9 Iron deficiency anemia, unspecified; I48.0 Paroxysmal atrial fibrillation; F41.9 Anxiety disorder, unspecified; I44.0 Atrioventricular block, first degree; Z79.01 Long term (current) use of anticoagulants; Z90.49 Acquired absence of other specified parts of digestive tract; Z90.2 Acquired absence of lung [part of]; Z87.891 Personal history of nicotine dependence
CPT/HCPCS: 36415; 36416; 71045; 71260; 74177; 74230; 80053; 81001; 82962; 83605; 83735; 84100; 84484; 85025; 85610; 87040; 92523; 92610; 92611; 93005; 93306; 94640; 96372; 96376; 97110; 97116; 97161; J1630; J1650; J2185; J2470; J3490